=== PATIENT | female | born 1955 | race Caucasian/White ===

== ENCOUNTER 2020-10-23 01:55 | Emergency (ER) | payer MEDICARE, MEDICAID, SELFPAY ==
[2020-10-23 02:10] VITALS: BP 107/72; PULSE 93; RESP 15; TEMP 37.2; O2SAT 95; BMI 24.2
--- NOTE | 2020-10-23 02:35 | ECG_ITS ---
Test Reason : AMS Blood Pressure : / mmHG Vent. Rate : 090 BPM Atrial Rate : 250 BPM P-R Int : 000 ms QRS Dur : 072 ms QT Int : 390 ms P-R-T Axes : 000 038 058 degrees QTc Int : 477 ms Poor data quality Normal sinus rhythm ST & T wave abnormality, consider lateral ischemia Abnormal ECG When compared with ECG of 29-APR-2020 01:10, T wave inversion now evident in Lateral leads Referred By: Janis Salinas Electronically Signed By:COLIN BOLDEN MD
--- NOTE | 2020-10-23 02:35 | XR_ITS ---
EXAMINATION: CHEST 1 VIEW CLINICAL INFORMATION: Cough. COMPARISON: 04/29/2020. TECHNIQUE: An AP view of the chest is provided. FINDINGS: The cardiac silhouette is not enlarged. The mediastinal and hilar contours are unremarkable. There are neither pleural effusions nor pneumothoraces. There are no consolidations. The osseous structures are stable. XR/XR chest 1V IMPRESSION: No evidence for acute disease.
--- NOTE | 2020-10-23 02:37 | ED.AMS ---
HPI - Altered Mental Status General Chief Complaint: General Medical Stated Complaint: ams Time Seen by Provider: 10/23/20 02:34 Source: patient and other (Facility) Mode of arrival: ambulatory History of Present Illness HPI narrative: This is a 65-year-old female with baseline dementia, however on questioning patient denies any current pain anywhere in her body. Patient was brought in by EMS after they were called from the facility for complaints of 2-3 days of changes in behavior firm baseline dementia and as per the facility the patient had been complaining of burning upon urination. Related Data Home Medications Medication Instructions Recorded Confirmed albuterol sulfate [Ventolin HFA] 2 puff INHALATION NEEDED 10/23/20 10/23/20 benztropine 1 tab PO BID 10/23/20 10/23/20 calcium carbonate-vitamin D3 1 tab PO DAILY 10/23/20 10/23/20 divalproex 500 mg PO DAILY 10/23/20 10/23/20 docusate sodium [Stool Softener] 1 cap PO BID 10/23/20 10/23/20 haloperidol 1 tab PO BEDTIME 10/23/20 10/23/20 haloperidol 1 tab PO BID 10/23/20 10/23/20 melatonin 1 tab PO BEDTIME 10/23/20 10/23/20 multivitamin [One Daily 1 tab PO DAILY 10/23/20 10/23/20 Multivitamin] oxybutynin chloride 1 tab PO DAILY 10/23/20 10/23/20 pantoprazole 1 tab PO DAILY 10/23/20 10/23/20 venlafaxine 1 cap PO DAILY 10/23/20 10/23/20 Previous Rx's Medication Instructions Recorded cephalexin 500 mg PO Q12H 7 Days #14 cap 10/23/20 Allergies Allergy/AdvReac Type Severity Reaction Status Date / Time egg [EGG] Allergy Intermediate DIARRHEA Verified 10/23/20 02:21 lactose [LACTOSE] Allergy Intermediate DIARRHEA Verified 10/23/20 02:21 alendronate sodium Allergy Mild UPSET Verified 10/23/20 02:21 [From FOSAMAX] STOMACH bone medications AdvReac Mild STOMACH Uncoded 10/23/20 02:21 UPSET Review of Systems Review of Systems: Dementia Yes Unobtainable due to mental condition PMFSH Past Medical History Source: nursing notes reviewed Medical History Asthma GERD (gastroesophageal reflux disease) Hypertension Schizoaffective disorder Social History Social History Smoking Status: Never smoker Use of substances other than those prescribed or required for medical reasons: No Advance Directives: No Advance Directives Information Provided: No Physical Exam Vital Signs: Vital Signs: Last Vital Signs Temp 98.9 F 10/23/20 02:10 Pulse 99 10/23/20 04:00 Resp 16 10/23/20 04:00 BP 127/72 10/23/20 04:00 Pulse Ox 96 10/23/20 04:00 Body Mass Index 24.2 VITAL SIGNS: Reviewed. GENERAL: Well developed, well nourished, in no acute distress. HEAD: Normocephalic/atraumatic, EYES: PERRLA, EOMI intact without pain OROPHARYNX: no oral lesions noted, posterior pharynx clear, mucosa dry NECK: Supple, no adenopathy LUNGS: Normal breath sounds. No adventitious sounds or accessory muscle use. SpO2<95> CARDIOVASCULAR: Regular rate and rhythm without noted murmurs, no JVD or lower extremity edema. ABDOMEN: Soft, non-tender, non-distended with bowel sounds. No rigidity. No guarding. No palpable masses or hernias noted MUSCULOSKELETAL: No tenderness, deformities, or effusions noted on gross inspection. EXTREMITIES: No cyanosis, clubbing or edema. SKIN: Inspection of the skin reveals no rashes, ulcerations, jaundice, pallor, or petechiae. NEUROLOGIC: Alert and oriented x 2. Strength and sensation to light touch were grossly intact x 4, no pronator drift, no facial asymmetry. Course Course Course Narrative: This is a 65-year-old female with history and clinical presentation consistent with likely underlying infection but no evidence to suggest neurological deficits. On review of all investigations patient is noted to have a mild leukocytosis with positive urinalysis and otherwise no acute changes in lab work to suggest alternative etiologies. Patient was noted to be able to ambulate without difficulty. Patient was given initial antibiotics here in the emergency department and will be discharged back to the facility with a prescription for remaining treatment. Chest x-ray was without acute findings. MDM - Altered Mental Status Lab Data Result diagrams: 10/23/20 02:54 10/23/20 02:54 Labs: Lab Results 10/23/20 10/23/20 10/23/20 Range/Units 02:54 02:54 02:54 WBC 12.1 H (4.8-10.8) X10*3/uL RBC 3.72 L (4.20-5.50) X10*6/uL Hgb 12.0 (12.0-16.0) g/dl Hct 36.1 L (37-47) % MCV 97.0 (80-98) fL MCH 32.3 (27.0-33.0) pg MCHC 33.2 (31.0-35.0) g/dl RDW 13.2 (11.0-16.0) % Plt Count 139 L (160-400) X10*3/uL MPV 11.0 (9.4-12.3) fL Immature Gran % (Auto) 0.6 H (0.0-0.4) % Neut % (Auto) 73.9 H (45-73) % Lymph % (Auto) 10.6 L (20-40) % [place] % (Auto) 13.8 H (2-11) % Eos % (Auto) 0.9 (0-4) % Baso % (Auto) 0.2 (0-2) % Lymph # (Auto) 1.3 (1.2-4.9) X10*3/uL [place] # (Auto) 1.7 H (0.1-1.2) X10*3/uL Eos # (Auto) 0.1 (0.0-0.4) X10*3/uL Baso # (Auto) 0.0 (0.0-0.2) X10*3/uL Abs Immat Gran (auto) 0.07 H (0.00-0.03) X10*3/uL Absolute Neuts (auto) 8.9 H (2.0-8.3) X10*3/uL Absolute Nucleated RBC 0.000 (0.0-0.012) X10*3/uL Nucleated RBC % (auto) 0.0 (0.0-0.2) /100WBC Smear Tech's Comments VERIFIED PT 13.2 H (10.8-13.0) SEC INR 1.1 (0.9-1.1) Sodium 137 (135-145) mmol/L Potassium 3.9 (3.3-5.1) mmol/l Chloride 103 (96-108) mmol/L Carbon Dioxide 26 (22-29) mmol/L Anion Gap 12 (12-20) BUN 13 (9-16) mg/dL Creatinine 0.71 (0.5-1.4) mg/dL Estim Creat Clear Calc 63.8 Estimated GFR > 60 Random Glucose 110 (60-115) mg/dL Calcium 8.5 (8.4-10.2) mg/dL Magnesium (1.6-2.6) mg/dL Total Bilirubin 0.4 (0.0-1.0) mg/dL AST 12 (5-31) U/L ALT 7 (0-31) U/L Alkaline Phosphatase 63 (39-117) U/L Total Protein 5.9 L (6.5-8.0) g/dL Albumin 3.5 (3.5-5.0) g/dL Lipase 8 (8-78) U/L Urine Color Urine Appearance Urine pH (5.0-8.0) Ur Specific [place] (1.005-1.025) Urine Protein (NEG-TRACE) MG/DL Urine Glucose (UA) (NEG) MG/DL Urine Ketones (NEG) MG/DL Urine Blood (NEG) Urine Nitrite (NEG) Ur Leukocyte Esterase (NEG) Urine RBC (0) /HPF Urine WBC (0-4) /HPF Ur Squamous Epith Cells /LPF Urine Bacteria /LPF Urine Mucus /LPF 10/23/20 10/23/20 Range/Units 02:54 03:45 WBC (4.8-10.8) X10*3/uL RBC (4.20-5.50) X10*6/uL Hgb (12.0-16.0) g/dl Hct (37-47) % MCV (80-98) fL MCH (27.0-33.0) pg MCHC (31.0-35.0) g/dl RDW (11.0-16.0) % Plt Count (160-400) X10*3/uL MPV (9.4-12.3) fL Immature Gran % (Auto) (0.0-0.4) % Neut % (Auto) (45-73) % Lymph % (Auto) (20-40) % [place] % (Auto) (2-11) % Eos % (Auto) (0-4) % Baso % (Auto) (0-2) % Lymph # (Auto) (1.2-4.9) X10*3/uL [place] # (Auto) (0.1-1.2) X10*3/uL Eos # (Auto) (0.0-0.4) X10*3/uL Baso # (Auto) (0.0-0.2) X10*3/uL Abs Immat Gran (auto) (0.00-0.03) X10*3/uL Absolute Neuts (auto) (2.0-8.3) X10*3/uL Absolute Nucleated RBC (0.0-0.012) X10*3/uL Nucleated RBC % (auto) (0.0-0.2) /100WBC Smear Tech's Comments PT (10.8-13.0) SEC INR (0.9-1.1) Sodium (135-145) mmol/L Potassium (3.3-5.1) mmol/l Chloride (96-108) mmol/L Carbon Dioxide (22-29) mmol/L Anion Gap (12-20) BUN (9-16) mg/dL Creatinine (0.5-1.4) mg/dL Estim Creat Clear Calc Estimated GFR Random Glucose (60-115) mg/dL Calcium (8.4-10.2) mg/dL Magnesium 1.8 (1.6-2.6) mg/dL Total Bilirubin (0.0-1.0) mg/dL AST (5-31) U/L ALT (0-31) U/L Alkaline Phosphatase (39-117) U/L Total Protein (6.5-8.0) g/dL Albumin (3.5-5.0) g/dL Lipase (8-78) U/L Urine Color YELLOW Urine Appearance CLEAR Urine pH 6.0 (5.0-8.0) Ur Specific [place] 1.025 (1.005-1.025) Urine Protein NEG (NEG-TRACE) MG/DL Urine Glucose (UA) NEG (NEG) MG/DL Urine Ketones 15 (NEG) MG/DL Urine Blood NEG (NEG) Urine Nitrite NEG (NEG) Ur Leukocyte Esterase 1+ H (NEG) Urine RBC 1-4 (0) /HPF Urine WBC 10-14 H (0-4) /HPF Ur Squamous Epith Cells 1+ /LPF Urine Bacteria 1+ /LPF Urine Mucus 1+ /LPF Discharge Plan Discharge Clinical Impression: Acute UTI Patient Disposition: er [facility] Instructions: Urinary Tract Infection in Older Adults (ED) Additional Instructions: Please resume all home medications as prescribed. Increase fluid hydration especially with water. Prescriptions: New cephalexin 500 mg capsule 500 mg PO Q12H 7 Days Qty: 14 RF: 0 No Action multivitamin [One Daily Multivitamin] Tablet 1 tab PO DAILY RF: 0 venlafaxine 75 mg capsule,extended release 24hr 1 cap PO DAILY RF: 0 benztropine 0.5 mg tablet 1 tab PO BID RF: 0 haloperidol 5 mg tablet 1 tab PO BEDTIME RF: 0 oxybutynin chloride 10 mg tablet extended release 24hr 1 tab PO DAILY RF: 0 melatonin 3 mg tablet 1 tab PO BEDTIME RF: 0 pantoprazole 40 mg tablet,delayed release (DR/EC) 1 tab PO DAILY RF: 0 docusate sodium [Stool Softener] 100 mg capsule 1 cap PO BID RF: 0 albuterol sulfate [Ventolin HFA] 90 mcg/actuation HFA aerosol inhaler 2 puff inhalation NEEDED RF: 0 haloperidol 2 mg tablet 1 tab PO BID RF: 0 divalproex 125 mg capsule, delayed rel sprinkle 500 mg PO DAILY RF: 0 calcium carbonate-vitamin D3 600 mg(1,500mg) -400 unit tablet 1 tab PO DAILY RF: 0
[2020-10-23] MEDS: 0.9 % Sodium Chloride 1,000 ML 999 ML IV (02:56)
[2020-10-23 03:01] LABS: Basophils Percent Auto 0.2 % (0-2); MANUAL DIFF FLAG SCAN; PLT CLUMP 1; SCAN SMEAR FLAG 1
[2020-10-23 03:02] LABS: Eosinophils Absolute Auto 0.1 X10*3/uL (0.0-0.4); Eosinophils Percent Auto 0.9 % (0-4); Hematocrit 36.1 % (37-47); Imm Gran Abs Auto 0.07 X10*3/uL (0.00-0.03); Imm Gran Pct Auto 0.6 % (0.0-0.4); Lymphocytes Absolute Auto 1.3 X10*3/uL (1.2-4.9); Lymphocytes Percent Auto 10.6 % (20-40); Mean Corpuscular HGB Conc 33.2 g/dl (31.0-35.0); Mean Corpuscular Hemoglobin 32.3 pg (27.0-33.0); Monocytes Absolute Auto 1.7 X10*3/uL (0.1-1.2); Monocytes Percent Auto 13.8 % (2-11); Neutrophils Absolute Auto 8.9 X10*3/uL (2.0-8.3); Neutrophils Percent Auto 73.9 % (45-73); Platelet Count 139 X10*3/uL (160-400); Red Blood Count 3.72 X10*6/uL (4.20-5.50); Red Cell Distribution Width 13.2 % (11.0-16.0); White Blood Count 12.1 X10*3/uL (4.8-10.8)
[2020-10-23 03:07] LABS: INTERNATIONAL NORM RATIO 1.1 (0.9-1.1); Prothrombin Time 13.2 SEC (10.8-13.0)
[2020-10-23 03:25] LABS: Alanine Aminotransferase 7 U/L (0-31); Albumin Level 3.5 g/dL (3.5-5.0); Alkaline Phosphatase 63 U/L (39-117); Anion Gap 12 (12-20); Aspartate Amino Transferase 12 U/L (5-31); Bilirubin Total 0.4 mg/dL (0.0-1.0); Blood Urea Nitrogen 13 mg/dL (9-16); Calcium 8.5 mg/dL (8.4-10.2); Carbon Dioxide 26 mmol/L (22-29); Chloride 103 mmol/L (96-108); Creatinine Clr Calc Pharmacy 63.8; Estimated Glomerular Filt Rate > 60; Glucose Random 110 mg/dL (60-115); Lipase 8 U/L (8-78); Magnesium 1.8 mg/dL (1.6-2.6); Potassium 3.9 mmol/l (3.3-5.1); Sodium 137 mmol/L (135-145); Total Protein 5.9 g/dL (6.5-8.0)
[2020-10-23 03:26] LABS: SLIDE REVIEW VERIFIED
[2020-10-23 04:00] VITALS: BP 127/72; PULSE 99; RESP 16; O2SAT 96
[2020-10-23 04:00] LABS: Appearance Urine CLEAR; Color Urine YELLOW; Glucose Urine UA NEG (NEG); Leukocyte Esterase Urine 1+ (NEG); Nitrite Urine NEG (NEG); Specific Gravity - Urine 1.025 (1.005-1.025); Urine Blood NEG (NEG); Urine Ketones 15 MG/DL (NEG); Urine Protein NEG (NEG-TRACE)
[2020-10-23 04:05] LABS: Bacteria Urine 1+ /LPF; Mucus Urine 1+ /LPF; Squamous Epithelial Cell Urine 1+ /LPF
[2020-10-23] MEDS: cefTRIAXone sodium 1 GM in 0.9 % Sodium Chloride 50 ML IV (04:44)
--- NOTE | 2020-10-23 06:07 | PC.NURSE ---
REPORT GIVEN TO [facility] AT [facility].
== END 2020-10-23 06:50 | disposition skilled nursing facility (03) ==
PROVIDERS: Emergency Provider Student in an Organized Health Care Education/Training Program
DX: N39.0 Urinary tract infection, site not specified (principal); R41.82 Altered mental status, unspecified; R05 Cough; R94.31 Abnormal electrocardiogram [ECG] [EKG]; I10 Essential (primary) hypertension; R30.0 Dysuria; Z79.899 Other long term (current) drug therapy
CPT/HCPCS: 36415; 71045; 80053; 81001; 83690; 83735; 85025; 85610; 87086; 93005; 96361; 96365; 99284; J0696

== ENCOUNTER 2020-12-02 15:23 | Emergency (ER) | payer MEDICARE, MEDICAID, SELFPAY ==
[2020-12-02] VITALS (8 sets, daily range): BP systolic 87–132; BP diastolic 33–86; PULSE 78–117; RESP 15–17; TEMP 36.3–36.8; O2SAT 95–97; BMI 25.4
--- NOTE | ~2020-12-02 | CT_ITS ---
EXAMINATION: CT HEAD WITHOUT CONTRAST CT CERVICAL SPINE WITHOUT CONTRAST CLINICAL INFORMATION: Head injury. COMPARISON: CT head 04/29/2020 TECHNIQUE: Imaging was performed from the skull base to vertex without intravenous administration of contrast. In addition, helical noncontrast CT imaging was acquired through the cervical spine and source images were reviewed along with axial reconstructions and sagittal and coronal MPRs. [This CT examination was performed using dose optimization techniques as appropriate, variously including the following: *Automated exposure control *Adjustment of mA and/or kV according to patient size (this includes techniques or standardized protocols for targeted exams where dose is matched to indication/reason for exam; i.e. extremities or head) *Use of iterative reconstruction technique] DLP: 955 mGy-cm FINDINGS: HEAD: No intracranial mass, hemorrhage, or midline shift is visualized. There is atrophy with prominence of the ventricles and the sulci and hypodensity of the periventricular white matter due to chronic small vessel ischemic disease. There are vascular calcifications of the internal carotid arteries bilaterally. No extra-axial collections are identified. Small retention cyst inferior right maxillary sinus. Mastoid air cells and middle ear cavities are normally aerated. CERVICAL SPINE: There is no evidence of acute cervical spine fracture. Vertebral bodies remain normal in height. Cervical vertebrae have normal alignment. There is multilevel degenerative spondylosis of the cervical spine with disc height narrowing and endplate spurs and facet joint arthrosis No pre- or paravertebral soft tissue abnormality is identified. Limited assessment of the lung apices is unremarkable. CT/CT cervical spine wo con IMPRESSION: 1. No acute intracranial pathology. 2. No CT evidence of acute cervical spine fracture or traumatic subluxation
--- NOTE | ~2020-12-02 | XR_ITS ---
EXAMINATION: XR CHEST CLINICAL INFORMATION: Shortness of breath COMPARISON: X-ray the chest 10/23/2020 TECHNIQUE: Frontal view of the chest was obtained. FINDINGS: Subtle opacity overlying the medial aspect of the left first rib unchanged Lungs otherwise clear. No effusions. Old posterior right seventh rib fracture Cardiac silhouette and pulmonary vascularity normal. XR/XR chest 1V IMPRESSION: Subtle small in the left upper lung overlying the first rib unchanged compared to prior but not seen on earlier examinations including April 2020. Consider PA and lateral views of the chest to reevaluate for nodule or consolidation. Alternatively CT could be performed.
--- NOTE | 2020-12-02 15:39 | ECG_ITS ---
Test Reason : DIZZINESS Blood Pressure : / mmHG Vent. Rate : 088 BPM Atrial Rate : 088 BPM P-R Int : 150 ms QRS Dur : 074 ms QT Int : 372 ms P-R-T Axes : 083 070 079 degrees QTc Int : 450 ms Normal sinus rhythm Nonspecific T wave abnormality Abnormal ECG When compared with ECG of 23-OCT-2020 03:12, T wave inversion no longer evident in Lateral leads Referred By: Rosie Perkins Electronically Signed By:KELLI XIONG
--- NOTE | 2020-12-02 15:58 | ED_ITS ---
HPI - Fall General Chief Complaint: Fall Stated Complaint: mechanical fall, head swelling Time Seen by Provider: 12/02/20 15:39 History of Present Illness HPI Narrative: Patient is a 65-year-old female presents today after falling. Patient felt dizzy and then fell. May have hit the back of her head. Patient denies loss of consciousness. No focal weakness. Positive generalized malaise. No bloody stool. No coughing or congestion or upper respiratory symptoms. No new medication. No pain on urination. No chest pain. Related Data Home Medications Medication Instructions Recorded Confirmed albuterol sulfate [Ventolin HFA] 2 puff INHALATION NEEDED 10/23/20 10/23/20 benztropine 1 tab PO BID 10/23/20 10/23/20 calcium carbonate-vitamin D3 1 tab PO DAILY 10/23/20 10/23/20 divalproex 500 mg PO DAILY 10/23/20 10/23/20 docusate sodium [Stool Softener] 1 cap PO BID 10/23/20 10/23/20 haloperidol 1 tab PO BEDTIME 10/23/20 10/23/20 haloperidol 1 tab PO BID 10/23/20 10/23/20 melatonin 1 tab PO BEDTIME 10/23/20 10/23/20 multivitamin [One Daily 1 tab PO DAILY 10/23/20 10/23/20 Multivitamin] oxybutynin chloride 1 tab PO DAILY 10/23/20 10/23/20 pantoprazole 1 tab PO DAILY 10/23/20 10/23/20 venlafaxine 1 cap PO DAILY 10/23/20 10/23/20 Previous Rx's Medication Instructions Recorded cephalexin 500 mg PO Q12H 7 Days #14 cap 10/23/20 Allergies Allergy/AdvReac Type Severity Reaction Status Date / Time egg [EGG] Allergy Intermediate DIARRHEA Verified 10/23/20 02:21 lactose [LACTOSE] Allergy Intermediate DIARRHEA Verified 10/23/20 02:21 alendronate sodium Allergy Mild UPSET Verified 10/23/20 02:21 [From FOSAMAX] STOMACH bone medications AdvReac Mild STOMACH Uncoded 10/23/20 02:21 UPSET Review of Systems Review of Systems: Constitutional: No Weight loss, No Fever, No Chills, No Night Sweats, No Fatigue, No Malaise ENT/Mouth: No Hearing loss, No Ear Pain, No Nasal Congestion, No Sinus Pain, No Hoarseness, No sore throat, No Rhinorrhea, No Swallowing Difficulty Eyes: No Eye Pain, No Swelling, No Redness, No Foreign Body, No Discharge, No Vision Changes Cardiovascular: No Chest Pain, No SOB, No Dyspnea on Exertion, No Orthopnea, No Edema, No Palpitations Respiratory: No Cough, No Sputum, No Wheezing, No Smoke Exposure, No Dyspnea Gastrointestinal: No Nausea, No Vomiting, No Diarrhea, No Constipation, No abdominal Pain, No Hematochezia, No Melena Genitourinary: no irregular bleeding, No Dysuria, No Urinary Frequency, No Hematuria, No Urinary Incontinence, No Urgency, No Flank Pain, No Urinary Flow Changes, No Hesitancy Musculoskeletal: No joint pain, No Myalgias, No Joint Swelling Skin: No Skin Lesions, No rash Neuro: + Weakness, No Numbness, No Paresthesias, No Loss of Consciousness,+ Dizziness, No Headache Psych: No Anxiety/Panic, No Depression, No SI/HI/AH/VH, No Social Issues, Heme/Lymph: No Bruising, No Bleeding,No Lymphadenopathy Endocrine: No Polyuria, No Polydipsia, No Temperature Intolerance Yes all other systems are reviewed and are negative [facility] Past Medical History Attestation statement: The following information was validated with the patient. Medical History Asthma GERD (gastroesophageal reflux disease) Hypertension Schizoaffective disorder Social History Social History Smoking Status: Never smoker Advance Directives: No Advance Directives Information Provided: Yes Physical Exam Vital Signs: Vital Signs: Last Vital Signs Temp 98.2 F 12/02/20 15:31 Pulse 113 H 12/02/20 16:47 Resp 15 12/02/20 15:31 BP 87/33 L 12/02/20 16:47 Pulse Ox 95 12/02/20 15:31 Body Mass Index 25.4 Appearance: Alert. Oriented X3. No acute distress. Eyes: Pupils equal, round and reactive to light. ENT: Pharynx normal. Neck: Normal inspection. Neck supple. No lymph nodes noted. No crepitus CVS: Normal heart rate and rhythm. Pulses normal. Normal S1 and S2 Respiratory: No respiratory distress. Breath sounds normal. No Wheezing. No rales Abdomen: Soft and nontender. No rigidity. No distention. good BS x4 Skin: Skin warm and dry. Normal skin color. Normal skin turgor. Extremities: No lower extremity edema. Neurovascular intact to all extremities. No Lacerations. No Rash Neuro: Oriented X 3. No motor deficit. No sensory deficit. Moving all extermities. No slurred speech MDM - Fall MDM Narrative Medical decision making narrative: Well-appearing not acute distress. Has a generalized malaise. Patient's EKG showed a sinus pattern headers 90 RI QRS QT within normal limits is no acute ST segment elevation. Labs and CT are pending. CT scan of the head was grossly negative. Patient's hemoglobin is baseline. Well-appearing no acute distress. Patient's orthostatics showed patient's blood pressure dropped by 20 points on sitting up. Likely dehydration causing PEEP patient's fall. Patient's hemoccult stool was negative. Otherwise well- appearing. Will discharge patient home after IV hydration and if patients is no longer orthostatic. Lab Data Result diagrams: 12/02/20 16:01 12/02/20 16:01 Labs: Lab Results 12/02/20 12/02/20 12/02/20 Range/Units 15:55 15:56 16:01 WBC 6.5 (4.8-10.8) X10*3/uL RBC 3.91 L (4.20-5.50) X10*6/uL Hgb 12.5 (12.0-16.0) g/dl Hct 37.8 (37-47) % MCV 96.7 (80-98) fL MCH 32.0 (27.0-33.0) pg MCHC 33.1 (31.0-35.0) g/dl RDW 13.4 (11.0-16.0) % Plt Count 170 (160-400) X10*3/uL MPV 10.7 (9.4-12.3) fL Immature Gran % (Auto) 0.6 H (0.0-0.4) % Neut % (Auto) 55.9 (45-73) % Lymph % (Auto) 28.1 (20-40) % [place] % (Auto) 10.8 (2-11) % Eos % (Auto) 4.3 H (0-4) % Baso % (Auto) 0.3 (0-2) % Lymph # (Auto) 1.8 (1.2-4.9) X10*3/uL [place] # (Auto) 0.7 (0.1-1.2) X10*3/uL Eos # (Auto) 0.3 (0.0-0.4) X10*3/uL Baso # (Auto) 0.0 (0.0-0.2) X10*3/uL Abs Immat Gran (auto) 0.04 H (0.00-0.03) X10*3/uL Absolute Neuts (auto) 3.6 (2.0-8.3) X10*3/uL Absolute Nucleated RBC 0.000 (0.0-0.012) X10*3/uL Nucleated RBC % (auto) 0.0 (0.0-0.2) /100WBC PT (10.8-13.0) SEC INR (0.9-1.1) Sodium (135-145) mmol/L Potassium (3.3-5.1) mmol/L Chloride (96-108) mmol/L Carbon Dioxide (22-29) mmol/L Anion Gap (12-20) BUN (9-16) mg/dL Creatinine (0.5-1.4) mg/dL Estim Creat Clear Calc Estimated GFR Random Glucose (60-115) mg/dL Calcium (8.4-10.2) mg/dL Total Bilirubin (0.0-1.0) mg/dL Direct Bilirubin (0.0-0.5) mg/dL AST (5-31) U/L ALT (0-31) U/L Alkaline Phosphatase (39-117) U/L Troponin I High Sens (<3.5-17.0) ng/L Total Protein (6.5-8.0) g/dL Albumin (3.5-5.0) g/dL Urine Color YELLOW Urine Appearance CLEAR Urine pH 7.0 (5.0-8.0) Ur Specific [place] 1.020 (1.005-1.025) Urine Protein NEG (NEG-TRACE) MG/DL Urine Glucose (UA) NEG (NEG) MG/DL Urine Ketones NEG (NEG) MG/DL Urine Blood NEG (NEG) Urine Nitrite NEG (NEG) Ur Leukocyte Esterase NEG (NEG) Stool Occult Blood NEG (NEG) COVID-19 (ADE) (Negative) COVID-19 Clin Com 12/02/20 12/02/20 12/02/20 Range/Units 16:01 16:01 16:01 WBC (4.8-10.8) X10*3/uL RBC (4.20-5.50) X10*6/uL Hgb (12.0-16.0) g/dl Hct (37-47) % MCV (80-98) fL MCH (27.0-33.0) pg MCHC (31.0-35.0) g/dl RDW (11.0-16.0) % Plt Count (160-400) X10*3/uL MPV (9.4-12.3) fL Immature Gran % (Auto) (0.0-0.4) % Neut % (Auto) (45-73) % Lymph % (Auto) (20-40) % [place] % (Auto) (2-11) % Eos % (Auto) (0-4) % Baso % (Auto) (0-2) % Lymph # (Auto) (1.2-4.9) X10*3/uL [place] # (Auto) (0.1-1.2) X10*3/uL Eos # (Auto) (0.0-0.4) X10*3/uL Baso # (Auto) (0.0-0.2) X10*3/uL Abs Immat Gran (auto) (0.00-0.03) X10*3/uL Absolute Neuts (auto) (2.0-8.3) X10*3/uL Absolute Nucleated RBC (0.0-0.012) X10*3/uL Nucleated RBC % (auto) (0.0-0.2) /100WBC PT 12.9 (10.8-13.0) SEC INR 1.1 (0.9-1.1) Sodium 141 (135-145) mmol/L Potassium 4.0 (3.3-5.1) mmol/L Chloride 105 (96-108) mmol/L Carbon Dioxide 27 (22-29) mmol/L Anion Gap 13 (12-20) BUN 13 (9-16) mg/dL Creatinine 0.68 (0.5-1.4) mg/dL Estim Creat Clear Calc 68.3 Estimated GFR > 60 Random Glucose 97 (60-115) mg/dL Calcium 8.8 (8.4-10.2) mg/dL Total Bilirubin 0.3 (0.0-1.0) mg/dL Direct Bilirubin < 0.2 (0.0-0.5) mg/dL AST 14 (5-31) U/L ALT 9 (0-31) U/L Alkaline Phosphatase 62 (39-117) U/L Troponin I High Sens < 3.5 (<3.5-17.0) ng/L Total Protein 5.9 L (6.5-8.0) g/dL Albumin 3.6 (3.5-5.0) g/dL Urine Color Urine Appearance Urine pH (5.0-8.0) Ur Specific [place] (1.005-1.025) Urine Protein (NEG-TRACE) MG/DL Urine Glucose (UA) (NEG) MG/DL Urine Ketones (NEG) MG/DL Urine Blood (NEG) Urine Nitrite (NEG) Ur Leukocyte Esterase (NEG) Stool Occult Blood (NEG) COVID-19 (ADE) (Negative) COVID-19 Clin Com 12/02/20 Range/Units 16:04 WBC (4.8-10.8) X10*3/uL RBC (4.20-5.50) X10*6/uL Hgb (12.0-16.0) g/dl Hct (37-47) % MCV (80-98) fL MCH (27.0-33.0) pg MCHC (31.0-35.0) g/dl RDW (11.0-16.0) % Plt Count (160-400) X10*3/uL MPV (9.4-12.3) fL Immature Gran % (Auto) (0.0-0.4) % Neut % (Auto) (45-73) % Lymph % (Auto) (20-40) % [place] % (Auto) (2-11) % Eos % (Auto) (0-4) % Baso % (Auto) (0-2) % Lymph # (Auto) (1.2-4.9) X10*3/uL [place] # (Auto) (0.1-1.2) X10*3/uL Eos # (Auto) (0.0-0.4) X10*3/uL Baso # (Auto) (0.0-0.2) X10*3/uL Abs Immat Gran (auto) (0.00-0.03) X10*3/uL Absolute Neuts (auto) (2.0-8.3) X10*3/uL Absolute Nucleated RBC (0.0-0.012) X10*3/uL Nucleated RBC % (auto) (0.0-0.2) /100WBC PT (10.8-13.0) SEC INR (0.9-1.1) Sodium (135-145) mmol/L Potassium (3.3-5.1) mmol/L Chloride (96-108) mmol/L Carbon Dioxide (22-29) mmol/L Anion Gap (12-20) BUN (9-16) mg/dL Creatinine (0.5-1.4) mg/dL Estim Creat Clear Calc Estimated GFR Random Glucose (60-115) mg/dL Calcium (8.4-10.2) mg/dL Total Bilirubin (0.0-1.0) mg/dL Direct Bilirubin (0.0-0.5) mg/dL AST (5-31) U/L ALT (0-31) U/L Alkaline Phosphatase (39-117) U/L Troponin I High Sens (<3.5-17.0) ng/L Total Protein (6.5-8.0) g/dL Albumin (3.5-5.0) g/dL Urine Color Urine Appearance Urine pH (5.0-8.0) Ur Specific [place] (1.005-1.025) Urine Protein (NEG-TRACE) MG/DL Urine Glucose (UA) (NEG) MG/DL Urine Ketones (NEG) MG/DL Urine Blood (NEG) Urine Nitrite (NEG) Ur Leukocyte Esterase (NEG) Stool Occult Blood (NEG) COVID-19 (ADE) Negative (Negative) COVID-19 Clin Com See Note Discharge Plan Discharge Clinical Impression: Head injury, Dehydration, Near syncope Patient Disposition: Home, Self-Care Instructions: Dehydration (ED), Head Injury (ED), Near Syncope (ED) Prescriptions: No Action multivitamin [One Daily Multivitamin] Tablet 1 tab PO DAILY RF: 0 venlafaxine 75 mg capsule,extended release 24hr 1 cap PO DAILY RF: 0 benztropine 0.5 mg tablet 1 tab PO BID RF: 0 haloperidol 5 mg tablet 1 tab PO BEDTIME RF: 0 oxybutynin chloride 10 mg tablet extended release 24hr 1 tab PO DAILY RF: 0 melatonin 3 mg tablet 1 tab PO BEDTIME RF: 0 pantoprazole 40 mg tablet,delayed release (DR/EC) 1 tab PO DAILY RF: 0 docusate sodium [Stool Softener] 100 mg capsule 1 cap PO BID RF: 0 albuterol sulfate [Ventolin HFA] 90 mcg/actuation HFA aerosol inhaler 2 puff inhalation NEEDED RF: 0 haloperidol 2 mg tablet 1 tab PO BID RF: 0 divalproex 125 mg capsule, delayed rel sprinkle 500 mg PO DAILY RF: 0 calcium carbonate-vitamin D3 600 mg(1,500mg) -400 unit tablet 1 tab PO DAILY RF: 0 cephalexin 500 mg capsule 500 mg PO Q12H 7 Days Qty: 14 RF: 0 Referrals: Kris Ontiveros MD [Primary Care Provider] - 2 days
[2020-12-02 16:11] LABS: MANUAL DIFF FLAG NO
[2020-12-02 16:13] LABS: Basophils Percent Auto 0.3 % (0-2); Eosinophils Absolute Auto 0.3 X10*3/uL (0.0-0.4); Eosinophils Percent Auto 4.3 % (0-4); Hematocrit 37.8 % (37-47); Hemoglobin 12.5 g/dl (12.0-16.0); Imm Gran Abs Auto 0.04 X10*3/uL (0.00-0.03); Imm Gran Pct Auto 0.6 % (0.0-0.4); Lymphocytes Absolute Auto 1.8 X10*3/uL (1.2-4.9); Lymphocytes Percent Auto 28.1 % (20-40); Mean Corpuscular HGB Conc 33.1 g/dl (31.0-35.0); Mean Corpuscular Volume 96.7 fL (80-98); Mean Platelet Volume 10.7 fL (9.4-12.3); Monocytes Absolute Auto 0.7 X10*3/uL (0.1-1.2); Monocytes Percent Auto 10.8 % (2-11); Neutrophils Absolute Auto 3.6 X10*3/uL (2.0-8.3); Neutrophils Percent Auto 55.9 % (45-73); Platelet Count 170 X10*3/uL (160-400); Red Blood Count 3.91 X10*6/uL (4.20-5.50); Red Cell Distribution Width 13.4 % (11.0-16.0); White Blood Count 6.5 X10*3/uL (4.8-10.8)
[2020-12-02 16:14] LABS: Appearance Urine CLEAR; Color Urine YELLOW; Glucose Urine UA NEG (NEG); Leukocyte Esterase Urine NEG (NEG); Nitrite Urine NEG (NEG); Urine Blood NEG (NEG); Urine Ketones NEG (NEG); Urine Protein NEG (NEG-TRACE)
[2020-12-02 16:15] LABS: OBS Int Ctl Valid YES; OBS1 NEG (NEG)
[2020-12-02 16:19] LABS: INTERNATIONAL NORM RATIO 1.1 (0.9-1.1); Prothrombin Time 12.9 SEC (10.8-13.0)
[2020-12-02 16:30] LABS: IDNOW Serial# 9DD0AD1C
[2020-12-02 16:31] LABS: COVID-19 Test Negative (Negative)
[2020-12-02 16:42] LABS: Alanine Aminotransferase 9 U/L (0-31); Albumin Level 3.6 g/dL (3.5-5.0); Alkaline Phosphatase 62 U/L (39-117); Anion Gap 13 (12-20); Aspartate Amino Transferase 14 U/L (5-31); Bilirubin Direct < 0.2 mg/dL (0.0-0.5); Bilirubin Total 0.3 mg/dL (0.0-1.0); Blood Urea Nitrogen 13 mg/dL (9-16); Calcium 8.8 mg/dL (8.4-10.2); Carbon Dioxide 27 mmol/L (22-29); Chloride 105 mmol/L (96-108); Creatinine Clr Calc Pharmacy 68.3; Estimated Glomerular Filt Rate > 60; Glucose Random 97 mg/dL (60-115); Sodium 141 mmol/L (135-145); Total Protein 5.9 g/dL (6.5-8.0)
[2020-12-02 16:45] LABS: Troponin-I High Sensitivity < 3.5 ng/L (<3.5-17.0)
[2020-12-02] MEDS: 0.9 % Sodium Chloride 1,000 ML 999 ML IV (17:37)
--- NOTE | 2020-12-02 20:36 | PC.NURSE ---
CALLED FACILITY TO GIVE REPORT. NO ANSWER.
== END 2020-12-02 21:45 | disposition skilled nursing facility (03) ==
PROVIDERS: Emergency Provider Emergency Medicine Emergency Medical Services; PCP Internal Medicine
DX: S09.90XA Unspecified injury of head, initial encounter (principal); R53.81 Other malaise; M54.2 Cervicalgia; G44.309 Post-traumatic headache, unspecified, not intractable; E86.0 Dehydration; W01.0XXA Fall on same level from slipping, tripping and stumbling without subsequent striking against object, initial encounter; Y93.9 Activity, unspecified; Y92.9 Unspecified place or not applicable; Y99.9 Unspecified external cause status; Z79.899 Other long term (current) drug therapy; Z20.822 Contact with and (suspected) exposure to COVID-19
CPT/HCPCS: 36415; 70450; 71045; 72125; 80048; 80076; 81003; 82272; 84484; 85025; 85610; 87635; 93005; 96360; 99284

== ENCOUNTER 2021-01-06 18:35 | Emergency (ER) | payer MEDICARE, MEDICAID, SELFPAY ==
--- NOTE | ~2021-01-06 | XR_ITS ---
EXAMINATION: XR LUMBOSACRAL SPINE CLINICAL INFORMATION: Fall with back pain COMPARISON: Sacrum and coccyx 05/16/2014 TECHNIQUE: Three views of the lumbosacral spine. FINDINGS: There is mild lateral subluxation of L2 upon L3 to the right. Degenerative changes are present predominantly at L1-L2 and L2-L3. Some mild compression deformities may be present at L1 and L2, but because of the curvature, this is a bit difficult to assess. Unfortunately, at the time of the prior sacral and coccyx study, only the bottom of L3 was included. Surgical clips present in the right upper quadrant. No pelvic fracture is visualized in the visualized pelvis. XR/XR lumbar spine 2-3V IMPRESSION: Degenerative changes in the spine with some right lateral subluxation of L2 upon L3. A definite acute compression fracture is not seen. If pain persists, MRI may be of value to see if there is any edema.
[2021-01-06 18:44] VITALS: BP 91/40; PULSE 98; RESP 16; TEMP 36.9; O2SAT 96
[2021-01-06 18:53] VITALS: BP 91/40; BP 96/62; PULSE 103; PULSE 116; RESP 15; TEMP 36.8; O2SAT 98; BMI 23.6
--- NOTE | 2021-01-06 19:13 | ED.FALL ---
HPI - Fall General Chief Complaint: Fall Stated Complaint: fall, back pain Time Seen by Provider: 01/06/21 19:07 Source: patient and EMS Mode of arrival: EMS Limitations: no limitations History of Present Illness HPI Narrative: 65-year-old female came in from [facility] facility, patient was walking in the room trying to get something from the closet lost her balance and she fell backwards landed on her back, patient declined head injury or LOC, no neck pain, just complain of mid back pain, no other complaint at this point. Blood pressure noted to be on the low side reviewing old records patient was run lower side blood pressure, patient is asymptomatic from the low blood pressure. Related Data Home Medications Medication Instructions Recorded Confirmed albuterol sulfate [Ventolin HFA] 2 puff INHALATION NEEDED 10/23/20 10/23/20 benztropine 1 tab PO BID 10/23/20 10/23/20 calcium carbonate-vitamin D3 1 tab PO DAILY 10/23/20 10/23/20 divalproex 500 mg PO DAILY 10/23/20 10/23/20 docusate sodium [Stool Softener] 1 cap PO BID 10/23/20 10/23/20 haloperidol 1 tab PO BEDTIME 10/23/20 10/23/20 haloperidol 1 tab PO BID 10/23/20 10/23/20 melatonin 1 tab PO BEDTIME 10/23/20 10/23/20 multivitamin [One Daily 1 tab PO DAILY 10/23/20 10/23/20 Multivitamin] oxybutynin chloride 1 tab PO DAILY 10/23/20 10/23/20 pantoprazole 1 tab PO DAILY 10/23/20 10/23/20 venlafaxine 1 cap PO DAILY 10/23/20 10/23/20 Previous Rx's Medication Instructions Recorded cephalexin 500 mg PO Q12H 7 Days #14 cap 10/23/20 Allergies Allergy/AdvReac Type Severity Reaction Status Date / Time egg [EGG] Allergy Intermediate DIARRHEA Verified 10/23/20 02:21 lactose [LACTOSE] Allergy Intermediate DIARRHEA Verified 10/23/20 02:21 alendronate sodium Allergy Mild UPSET Verified 10/23/20 02:21 [From FOSAMAX] STOMACH bone medications AdvReac Mild STOMACH Uncoded 10/23/20 02:21 UPSET Review of Systems Review of Systems: All other systems are reviewed and are negative Constitutional: Reports as per HPI and Reports no additional constitutional complaints Eyes: Reports as per HPI and Reports no additional eye complaints Reports system reviewed and no additional complaints, except as documented Cardiovascular: Reports as per HPI and Reports no additional cardiovascular complaints Respiratory: Reports as per HPI and Reports no additional respiratory complaints Gastrointestinal: Reports as per HPI and Reports no additional gastrointestinal complaints Genitourinary: Reports no additional female genitourinary complaints Musculoskeletal: Reports no additional musculoskeletal complaints Skin/Breast: Reports system reviewed and no additional complaints, except as docu Psychiatric: Reports no additional psychiatric complaints Endocrine: Reports no additional endocrine complaints Hematologic/Lymphatic: Reports no additional hematologic/lymphatic complaints Allergic/Immunologic: Reports no additional allergic/immunologic complaints Reports system reviewed and no additional complaints, except as documented and Reports Abnormal speech present [facility]LY [facility] Past Medical History Medical History Asthma GERD (gastroesophageal reflux disease) Hypertension Schizoaffective disorder Social History Social History Alcohol intake: never Smoking Status: Never smoker Advance Directives: No Advance Directives Information Provided: Yes Physical Exam Vital Signs: Vital Signs: Last Vital Signs Temp 98.8 F 01/06/21 20:37 Pulse 88 01/06/21 20:37 Resp 20 01/06/21 20:37 BP 101/62 01/06/21 20:37 Pulse Ox 99 01/06/21 20:37 Body Mass Index 23.6 Vital signs have been reviewed as appeared to be correct. Blood pressure normal. Heart rate normal. Respiration rate normal. Temperature normal. Oxygen saturation normal. Appearance: Alert. Oriented X3. No acute distress. Head: Normal external exam. Normocephalic. Atraumatic. No Barger signs noted. No raccoon eyes noted Eyes: PERRLA. EOMI. Conjunctiva and sclera normal. Eyelids normal. ENT: TM's Normal. Pharynx normal. Uvula midline. Moist mucous membranes. No trismus noted. No drooling noted. No muffled voice noted. Neck: Normal inspection. Neck supple. FROM. No adenopathy. Thyroid Normal. No meningeal signs. No neck mass noted. CVS: Normal heart rate and rhythm. Heart sound normal. No murmurs noted. Pulses normal throughout. Respiratory: No respiratory distress. Painless inspiration. Breath sounds normal. No wheezes/rales/rhonchi noted. Chest nontender. No accessory muscle usage noted or decreased air movement noted. Abdomen: Soft and nontender. Bowel sounds normal in all 4 quadrants. No distention noted. No organomegaly noted. No visible injury noted. Back: No CVA tenderness. Full range of motion noted. Skin: Skin warm and dry. Normal skin color. Normal skin turgor. No rashes/lesions/lacerations noted. Extremities: No lower extremity edema. Extremities exhibit normal range of motion. Extremities nontender. Neuro: Oriented X 3. No motor deficit. No sensory deficit. Reflexes normal. Course Course Course Narrative: Assessment and plan. 65-year-old female came in for evaluation after mechanical fall complaining of mid back pain. Patient neurologically intact with unremarkable lumbar spine x-ray for acute fracture. Patient was given ibuprofen in the ED with a good pain control, patient is able to ambulate in the emergency department. Patient's blood pressure usually runs in the lower side today's blood pressure compared with previous 1 within patient normal values patient is asymptomatic. MDM - Fall Lab Data Attestation: I reviewed the patient's lab results. Result diagrams: 01/06/21 19:23 01/06/21 19:23 Labs: Lab Results 01/06/21 01/06/21 Range/Units 19:23 19:23 WBC 10.8 (4.8-10.8) X10*3/uL RBC 3.54 L (4.20-5.50) X10*6/uL Hgb 11.5 L (12.0-16.0) g/dl Hct 33.9 L (37-47) % MCV 95.8 (80-98) fL MCH 32.5 (27.0-33.0) pg MCHC 33.9 (31.0-35.0) g/dl RDW 13.5 (11.0-16.0) % Plt Count 154 L (160-400) X10*3/uL MPV 11.2 (9.4-12.3) fL Immature Gran % (Auto) 0.3 (0.0-0.4) % Neut % (Auto) 74.0 H (45-73) % Lymph % (Auto) 10.8 L (20-40) % [place] % (Auto) 13.4 H (2-11) % Eos % (Auto) 1.3 (0-4) % Baso % (Auto) 0.2 (0-2) % Lymph # (Auto) 1.2 (1.2-4.9) X10*3/uL [place] # (Auto) 1.4 H (0.1-1.2) X10*3/uL Eos # (Auto) 0.1 (0.0-0.4) X10*3/uL Baso # (Auto) 0.0 (0.0-0.2) X10*3/uL Abs Immat Gran (auto) 0.03 (0.00-0.03) X10*3/uL Absolute Neuts (auto) 8.0 (2.0-8.3) X10*3/uL Absolute Nucleated RBC 0.000 (0.0-0.012) X10*3/uL Nucleated RBC % (auto) 0.0 (0.0-0.2) /100WBC Sodium 139 (135-145) mmol/L Potassium 4.0 (3.3-5.1) mmol/L Chloride 108 (96-108) mmol/L Carbon Dioxide 25 (22-29) mmol/L Anion Gap 10 L (12-20) BUN 13 (9-16) mg/dL Creatinine 0.68 (0.5-1.4) mg/dL Estim Creat Clear Calc 61.4 Estimated GFR > 60 Random Glucose 97 (60-115) mg/dL Calcium 8.5 (8.4-10.2) mg/dL Lipase 14 (8-78) U/L Imaging Data Lumbar spine x-ray: Radiologist's impression: There is mild lateral subluxation of L2 upon L3 to the right. Degenerative changes are present predominantly at L1-L2 and L2-L3. Some mild compression deformities may be present at L1 and L2, but because of the curvature, this is a bit difficult to assess. Unfortunately, at the time of the prior sacral and coccyx study, only the bottom of L3 was included. Surgical clips present in the right upper quadrant. No pelvic fracture is visualized in the visualized pelvis. Discharge Plan Discharge Clinical Impression: Fall Qualifiers: Encounter type: initial encounter Qualified Code(s): W19.XXXA - Unspecified fall, initial encounter Back contusion Qualifiers: Encounter type: initial encounter Laterality: unspecified laterality Qualified Code(s): S20.229A - Contusion of unspecified back wall of thorax, initial encounter Patient Disposition: Home, Self-Care Instructions: Low Back Strain (ED) Prescriptions: No Action multivitamin [One Daily Multivitamin] Tablet 1 tab PO DAILY RF: 0 venlafaxine 75 mg capsule,extended release 24hr 1 cap PO DAILY RF: 0 benztropine 0.5 mg tablet 1 tab PO BID RF: 0 haloperidol 5 mg tablet 1 tab PO BEDTIME RF: 0 oxybutynin chloride 10 mg tablet extended release 24hr 1 tab PO DAILY RF: 0 melatonin 3 mg tablet 1 tab PO BEDTIME RF: 0 pantoprazole 40 mg tablet,delayed release (DR/EC) 1 tab PO DAILY RF: 0 docusate sodium [Stool Softener] 100 mg capsule 1 cap PO BID RF: 0 albuterol sulfate [Ventolin HFA] 90 mcg/actuation HFA aerosol inhaler 2 puff inhalation NEEDED RF: 0 haloperidol 2 mg tablet 1 tab PO BID RF: 0 divalproex 125 mg capsule, delayed rel sprinkle 500 mg PO DAILY RF: 0 calcium carbonate-vitamin D3 600 mg(1,500mg) -400 unit tablet 1 tab PO DAILY RF: 0 cephalexin 500 mg capsule 500 mg PO Q12H 7 Days Qty: 14 RF: 0 Referrals: Physician,Unknown [Primary Care Provider] - 2 days
[2021-01-06] MEDS: Ibuprofen 600 MG TABLET PO (19:22)
[2021-01-06 19:30] LABS: MANUAL DIFF FLAG NO
[2021-01-06 19:39] LABS: Basophils Percent Auto 0.2 % (0-2); Eosinophils Absolute Auto 0.1 X10*3/uL (0.0-0.4); Eosinophils Percent Auto 1.3 % (0-4); Hematocrit 33.9 % (37-47); Hemoglobin 11.5 g/dl (12.0-16.0); Imm Gran Abs Auto 0.03 X10*3/uL (0.00-0.03); Imm Gran Pct Auto 0.3 % (0.0-0.4); Lymphocytes Absolute Auto 1.2 X10*3/uL (1.2-4.9); Lymphocytes Percent Auto 10.8 % (20-40); Mean Corpuscular HGB Conc 33.9 g/dl (31.0-35.0); Mean Corpuscular Hemoglobin 32.5 pg (27.0-33.0); Mean Corpuscular Volume 95.8 fL (80-98); Mean Platelet Volume 11.2 fL (9.4-12.3); Monocytes Absolute Auto 1.4 X10*3/uL (0.1-1.2); Monocytes Percent Auto 13.4 % (2-11); Platelet Count 154 X10*3/uL (160-400); Red Blood Count 3.54 X10*6/uL (4.20-5.50); Red Cell Distribution Width 13.5 % (11.0-16.0); White Blood Count 10.8 X10*3/uL (4.8-10.8)
--- NOTE | 2021-01-06 19:57 | PC.NURSE ---
pt awake and alert, moving all extremities. pt has clear speech, equal bilateral smile and strong equal hand grasps/plantar flexion. pt able to drink water from cup with no trouble swallowing or coughing.
--- NOTE | 2021-01-06 20:04 | PC.NURSE ---
pt has 2 small abrasions on throcic and lumbar spine upon visual exam.
[2021-01-06 20:08] LABS: Anion Gap 10 (12-20); Carbon Dioxide 25 mmol/L (22-29); Chloride 108 mmol/L (96-108); Sodium 139 mmol/L (135-145)
[2021-01-06 20:09] LABS: Blood Urea Nitrogen 13 mg/dL (9-16); Calcium 8.5 mg/dL (8.4-10.2); Creatinine Clr Calc Pharmacy 61.4; Estimated Glomerular Filt Rate > 60; Glucose Random 97 mg/dL (60-115); Lipase 14 U/L (8-78)
[2021-01-06 20:37] VITALS: BP 101/62; PULSE 88; RESP 20; TEMP 37.1; O2SAT 99
[2021-01-06 20:54] VITALS: BP 104/63; PULSE 86; RESP 22; O2SAT 98
--- NOTE | 2021-01-06 20:56 | PC.NURSE ---
pt ambulatory from bed to bathroom, bed brought close to bathroom. ambulatory with steady gait. pt reports feeling better, still a little dizzy.
[2021-01-06 21:10] LABS: Glucose Urine UA NEG (NEG); Leukocyte Esterase Urine 2+ (NEG); Nitrite Urine NEG (NEG); UACC Culture Trigger YES; Urine Blood NEG (NEG); Urine Ketones NEG (NEG); Urine Protein NEG (NEG-TRACE)
[2021-01-06 21:12] LABS: Appearance Urine CLEAR; Color Urine YELLOW
[2021-01-06 21:28] LABS: Bacteria Urine 1+ /LPF; Mucus Urine 1+ /LPF; Squamous Epithelial Cell Urine TRACE /LPF; UACC CULT YES
--- NOTE | 2021-01-06 21:28 | PC.NURSE ---
[facility] [place] [facility].
--- NOTE | 2021-01-06 22:00 | PC.NURSE ---
report given to rn at [facility] by phone.
== END 2021-01-06 22:27 | disposition home or self-care (01) ==
PROVIDERS: Emergency Provider Emergency Medicine
DX: S20.229A Contusion of unspecified back wall of thorax, initial encounter (principal); S30.810A Abrasion of lower back and pelvis, initial encounter; S20.419A Abrasion of unspecified back wall of thorax, initial encounter; W18.30XA Fall on same level, unspecified, initial encounter; N30.00 Acute cystitis without hematuria; M54.5 Low back pain; I10 Essential (primary) hypertension; Y93.89 Activity, other specified; Y92.122 Bedroom in nursing home as the place of occurrence of the external cause; Y99.9 Unspecified external cause status
CPT/HCPCS: 36415; 72100; 80048; 81001; 83690; 85025; 87086; 99283; 99284

== ENCOUNTER 2024-09-26 21:25 | Inpatient (IN) | payer MEDICARE, MEDICAID, SELFPAY ==
[2024-09-26] VITALS (10 sets, daily range): BP systolic 107–139; BP diastolic 57–96; PULSE 104–133; RESP 19–28; TEMP 38.9–40.1; O2SAT 91–96; BMI 31.4
--- NOTE | ~2024-09-26 | XR_ITS ---
EXAMINATION: XR CHEST CLINICAL INFORMATION: Fever, cough, rule out pneumonia COMPARISON: December 02, 2020 TECHNIQUE: Frontal view of the chest was obtained. FINDINGS: The cardiomediastinal silhouette is stable. There is no focal lung consolidation or pleural effusions. There is no acute osseous abnormality. The soft tissues are unremarkable. XR/XR chest 1V IMPRESSION: No acute cardiopulmonary disease. Electronically signed by: Federico Berry MD 09/26/2024 11:08 PM [facility]
--- NOTE | 2024-09-26 21:39 | ECG_ITS ---
Test Reason : weakness Blood Pressure : / mmHG Vent. Rate : 114 BPM Atrial Rate : 114 BPM P-R Int : 148 ms QRS Dur : 076 ms QT Int : 356 ms P-R-T Axes : 059 029 -06 degrees QTc Int : [address] & T wave abnormality, consider inferolateral ischemia Premature ventricular complexes Abnormal ECG When compared with ECG of 02-DEC-2020 15:49, Non-specific change in ST segment in Inferior leads T wave inversion now evident in Lateral leads Referred By: Frederic Gil Electronically Signed By:KELLI XIONG
--- NOTE | 2024-09-26 21:40 | ED_ITS ---
HPI - Weakness General Chief complaint: Weakness Stated complaint: weakness, not feeling well Time Seen by Provider: 09/26/24 21:26 Source: patient Mode of arrival: EMS Limitations: no limitations History of Present Illness ED Provider: Dr. Frederic Gil HPI Narrative: 69-year-old female with a history of GERD, schizoaffective disorder, hypertension, asthma who presents emergency department for evaluation of weakness, shakiness, unable to walk, cough x2 days. Patient states that she has not felt well for 2 days. She states she has had shaking chills and a nonproductive cough. She states that she was had a decreased appetite but has been drinking water. Today, she was very weak and was unable to walk therefore an ambulance was called and she was brought to the emergency department for evaluation. She denied nausea or vomiting but states she has been having diarrhea. She complains of dysuria and frequency. She denied myalgias arthralgias. Related Data Home Medications ?Medication ?Instructions ?Recorded ?Confirmed albuterol sulfate 90 mcg/actuation 2 puff inhalation NEEDED 10/23/20 10/23/20 aerosol inhaler (Ventolin HFA) benztropine 0.5 mg tablet 1 tab PO BID 10/23/20 10/23/20 calcium 600 mg (as 1 tab PO DAILY 10/23/20 10/23/20 carbonate)-vitamin D3 10 mcg (400 unit) tablet divalproex 125 mg capsule,delayed 500 mg PO DAILY 10/23/20 10/23/20 release sprinkle docusate sodium 100 mg capsule 1 cap PO BID 10/23/20 10/23/20 (Stool Softener) haloperidol 2 mg tablet 1 tab PO BID 10/23/20 10/23/20 haloperidol 5 mg tablet 1 tab PO BEDTIME 10/23/20 10/23/20 melatonin 3 mg tablet 1 tab PO BEDTIME 10/23/20 10/23/20 multivitamin (One Daily 1 tab PO DAILY 10/23/20 10/23/20 Multivitamin tablet) oxybutynin chloride 10 mg 1 tab PO DAILY 10/23/20 10/23/20 tablet,extended release 24 hr pantoprazole 40 mg tablet,delayed 1 tab PO DAILY 10/23/20 10/23/20 release venlafaxine 75 mg capsule,extended 1 cap PO DAILY 10/23/20 10/23/20 release 24 hr Previous Rx's ?Medication ?Instructions ?Recorded cephalexin 500 mg capsule 500 mg PO Q12H 7 days #14 caps 10/23/20 cefuroxime axetil 500 mg tablet 500 mg PO BID 7 days #14 tabs 01/06/21 Allergies Allergy/AdvReac Type Severity Reaction Status Date / Time egg [EGG] Allergy Intermediate DIARRHEA Verified 09/26/24 21:44 lactose [LACTOSE] Allergy Intermediate DIARRHEA Verified 09/26/24 21:44 alendronate sodium Allergy Mild UPSET Verified 09/26/24 21:44 [From FOSAMAX] STOMACH bone medications AdvReac Mild STOMACH Uncoded 09/26/24 21:44 UPSET Review of Systems 2 Review of Systems: Yes all other systems are reviewed and are negative [facility]LY [facility], [facility] Past Medical History [facility], [facility] Narrative: Social history: Patient lives at [facility]. Patient denies tobacco use. She rarely drinks alcohol. She denies drug use. Medical History Asthma GERD (gastroesophageal reflux disease) Hypertension Schizoaffective disorder Social History Social History Alcohol intake: current Alcohol intake frequency: holidays/special occasions only Smoked in Last 30 Days: No Use of substances other than those prescribed or required for medical reasons: No Advance Directives: No Advance Directives Information Provided: No Physical Exam 2 Vital Signs: Vital Signs: Last Vital Signs Temp 102.7 F H 09/26/24 23:09 Pulse 106 H 09/26/24 23:09 Resp 19 09/26/24 23:09 BP 139/72 09/26/24 23:09 Pulse Ox 94 09/26/24 23:09 O2 Del Method Room Air 09/26/24 23:09 BMI result Body Mass Index 31.4 Exam: General: Awake, alert elderly woman, does not appear to be in distress Head: Normocephalic, atraumatic EENT: PERRL, Lids normal, sclera normal, conjunctiva normal, nose normal , ears normal, throat without erythema or exudates, very dry mucous membranes Neck: Supple, no adenopathy Lung: breath sounds symmetric, no wheezing, rales or rhonchi Chest: symmetric movement, nontender Heart: regular rate and rhythm, normal S1, S2 no murmurs or rubs Abdomen: soft, non-tender, nondistended, normal bowel sounds Back: no vertebral tenderness, no CVAT Extremities: no deformities, moves all extremities symmetrically Neuro: Awake, alert, oriented, normal speech, cranial nerves intact, moves all extremities symmetrically Psych: Pleasant, cooperative Medications Administered Discontinued Medications Generic Name Dose Route Start Last Admin Trade Name Winter PRN Reason Stop Dose Admin Acetaminophen 975 mg 09/26/24 21:39 09/26/24 22:09 Acetaminophen 325 Mg Tablet PO 09/26/24 21:40 975 mg ONCE STA Administration Ceftriaxone Sodium 1 gm 09/26/24 21:58 09/26/24 22:10 Ceftriaxone Sodium 1 Gm Vial IVPUSH 09/26/24 21:59 1 gm ONCE ONE Administration Sodium Chloride 1,434 mls @ 1,434 mls/hr 09/26/24 21:53 09/26/24 21:59 Ns IV 09/26/24 22:52 1,434 mls/hr .Q1H STA Administration Medical Decision Making Medical Decision Making [facility] Narrative: 69-year-old female with a history of GERD, schizoaffective disorder, hypertension, asthma who presents emergency department for evaluation of weakness, shakiness, unable to walk, cough x2 days with symptoms getting worse today to the point where she was not able to walk at her rest home. Patient's cough is nonproductive, she did complain of frequency and dysuria as well as diarrhea. Vital signs revealed an oral temperature of a 103.5 degrees F, respiratory rate was elevated 22, heart rate elevated 118. 21:48 Differential diagnosis: ?Includes but is not limited to pneumonia, UTI, viral syndrome, COVID-19, influenza, RSV, electrolyte abnormalities, anemia Following evaluation was ordered: CBC, CMP, PTT, lactic acid, lipase, magnesium, COVID-19, influenza, RSV, troponin, urinalysis, blood cultures x2 Patient was initially treated with the following: Normal saline bolus 30 cc/kilogram based on ideal body weight, acetaminophen 975 mg orally, ceftriaxone 1 g IV Course: 21:48 The patient meant SIRS criteria with an elevated temperature, heart rate and respiratory rate. Patient was made a code sepsis. The patient is obese with an elevated BMI 31.4 kg per m2 therefore she was given a 30 cc/kilogram normal saline bolus based on ideal body weight. At this time I suspect that she may have a urinary tract infection versus pneumonia and she was ordered to get ceftriaxone 1 g IV. 22:20 My interpretation patient's laboratory evaluation is as follows: Low platelet count a [id number], elevated glucose 119. Troponin was below detectable limits. COVID-19, RSV and COVID tests were negative. Lactic acid was normal at 1.4. One-view chest x-ray did not reveal any focal infiltrates/pneumonia. Twelve EKG revealed sinus tachycardia rate of 114 with occasional PVCs and ST segment depression V5 through V6 which was new compared to EKG dated 12/02/2020. 23:08 Patient's urinalysis was positive for protein, blood, leukocyte esterase. Microscopic revealed 3-5 RBCs, greater than 50 WBCs, 3+ bacteria. This is consistent with a urinary tract infection this most likely explains her symptoms. I did discuss the patient's presentation and evaluation over tiger text with the covering hospitalist, Dr. Hernandez and the patient will be admitted to the hospitalist service for further management. Admission/Observation Consideration of admission/observation: Escalation of care including admission/observation considered (Yes) Lab Data 09/26/24 21:47 09/26/24 21:47 Labs: Lab Results 09/26/24 09/26/24 09/26/24 Range/Units 21:47 21:48 22:29 WBC 6.7 (4.8-10.8) X10*3/uL RBC 3.99 L (4.20-5.50) X10*6/uL Hgb 12.3 (12.0-16.0) g/dl Hct 36.0 L (37.0-47.0) % MCV 90.2 (80.0-98.0) fL MCH 30.8 (27.0-33.0) pg MCHC 34.2 (31.0-35.0) g/dl RDW 14.2 (11.0-16.0) % Plt Count 156 L (160-400) X10*3/uL MPV 11.1 (9.4-12.3) fL Immature Gran % (Auto) 0.8 H (0.0-0.4) % Neut % (Auto) 71.5 (45-73) % Lymph % (Auto) 9.3 L (20-40) % [place] % (Auto) 16.4 H (2-11) % Eos % (Auto) 1.8 (0-4) % Baso % (Auto) 0.2 (0-2) % Lymph # (Auto) 0.6 L (1.2-4.9) X10*3/uL [place] # (Auto) 1.1 (0.1-1.2) X10*3/uL Eos # (Auto) 0.1 (0.0-0.4) X10*3/uL Baso # (Auto) 0.0 (0.0-0.2) X10*3/uL Abs Immat Gran (auto) 0.05 H (0.00-0.03) X10*3/uL Absolute Neuts (auto) 4.8 (2.0-8.3) x10*3/uL Absolute Nucleated RBC 0.000 (0.0-0.012) X10*3/uL Nucleated RBC % (auto) 0.0 (0.0-0.2) /100WBC APTT 30.4 (26.0-36.8) SEC Sodium 140 (135-145) mmol/L Potassium 3.5 (3.3-5.1) mmol/L Chloride 107 (96-108) mmol/L Carbon Dioxide 23 (22-29) mmol/L Anion Gap 14 (12-20) BUN 13 (9-16) mg/dL Creatinine 0.79 (0.5-1.4) mg/dL Estim Creat Clear Calc 61.5 Estimated GFR > 60 Random Glucose 119 H (60-115) mg/dL Lactic Acid 1.4 (0.5-2.0) mmol/L Calcium 8.8 (8.4-10.2) mg/dL Magnesium 1.6 (1.6-2.6) mg/dL Total Bilirubin 0.3 (0.0-1.0) mg/dL AST 26 (5-31) U/L ALT 12 (0-31) U/L Alkaline Phosphatase 75 (39-117) U/L Troponin I High Sens < 2.7 (<3.5-17.0) ng/L Total Protein 6.3 L (6.5-8.0) g/dL Albumin 3.4 L (3.5-5.0) g/dL Lipase 10 (8-78) U/L Urine Color Yellow Urine Appearance Turbid Urine pH 6.5 (5.0-9.0) Ur Specific [place] 1.015 (1.005-1.025) Urine Protein 30 (1+) H (Neg-Trace) mg/dL Urine Glucose (UA) Negative (Negative) mg/dL Urine Ketones Trace (Negative) mg/dL Urine Blood Small (1+) H (Negative) Urine Nitrite Positive H (Negative) Ur Leukocyte Esterase Large (3+) H (Negative) Urine RBC 3-5 H (0-2) /HPF Urine WBC >50 H (0-5) /HPF Ur Squamous Epith Cells 3-5 (0-2) /HPF Urine Bacteria 3+ (None Seen) Hyaline Casts 0-2 (0-2) /LPF Influenza Type A (PCR) NEGATIVE (Negative) Influenza Type B (PCR) NEGATIVE (Negative) RSV RNA Qual (PCR) NEGATIVE (Negative) SARS-CoV-2 RNA (RT-PCR) NEGATIVE (Negative) Independent Interpretation I performed an independent interpretation of an: EKG Interpretation: My independent interpretation patient's 12 EKG done at 10:13 hours is as follows: Sinus tachycardia with a rate of 114, normal [place] interval and QRS duration, prolonged QTC interval 490 milliseconds. Q-wave lead 3, no ST segment elevation, less than [address] segment depression V5 and V6, occasional PVC, no significant T-wave abnormalities Independent Historian Clinical information obtained from an independent historian. History obtained from or confirmed by: EMS Critical Care Time Critical Care Time Critical Care Time: Yes Total Critical Care Time: 35 Attestation: Critical Care: The patient was critically ill with a high probability of imminent or life threatening deterioration. I spent greater than 30 minutes of discontinuous time evaluating the patient,delivering critical care at the bedside, discussing and evaluating pertinent data with consultants. Critical care time does not include time spent performing separately billable procedures or teaching. Total time spent performing critical care was 25 minutes. Discharge Plan Discharge Clinical Impression: Weakness Urinary tract infection Qualifiers: Urinary tract infection type: site unspecified Hematuria presence: without hematuria Qualified Code(s): N39.0 - Urinary tract infection, site not specified Fever Qualifiers: Encounter type: initial encounter Patient Disposition: Admitted As Inpatient Print Language: Tristanian
[2024-09-26 21:56] LABS: MANUAL DIFF FLAG NO
[2024-09-26] MEDS: 0.9 % Sodium Chloride 1,434 ML 1434 ML IV (21:59)
[2024-09-26 22:00] LABS: Basophils Percent Auto 0.2 % (0-2); Eosinophils Absolute Auto 0.1 X10*3/uL (0.0-0.4); Eosinophils Percent Auto 1.8 % (0-4); Hemoglobin 12.3 g/dl (12.0-16.0); Imm Gran Abs Auto 0.05 X10*3/uL (0.00-0.03); Imm Gran Pct Auto 0.8 % (0.0-0.4); Lymphocytes Absolute Auto 0.6 X10*3/uL (1.2-4.9); Lymphocytes Percent Auto 9.3 % (20-40); Mean Corpuscular HGB Conc 34.2 g/dl (31.0-35.0); Mean Corpuscular Hemoglobin 30.8 pg (27.0-33.0); Mean Corpuscular Volume 90.2 fL (80.0-98.0); Mean Platelet Volume 11.1 fL (9.4-12.3); Monocytes Absolute Auto 1.1 X10*3/uL (0.1-1.2); Monocytes Percent Auto 16.4 % (2-11); Neutrophils Absolute Auto 4.8 x10*3/uL (2.0-8.3); Neutrophils Percent Auto 71.5 % (45-73); Platelet Count 156 X10*3/uL (160-400); Red Blood Count 3.99 X10*6/uL (4.20-5.50); Red Cell Distribution Width 14.2 % (11.0-16.0); White Blood Count 6.7 X10*3/uL (4.8-10.8)
[2024-09-26 22:08] LABS: Partial Thromboplastin Time 30.4 SEC (26.0-36.8)
[2024-09-26] MEDS: Acetaminophen 325 MG TABLET 975 MG PO (22:09)
[2024-09-26 22:10] LABS: Alanine Aminotransferase 12 U/L (0-31); Albumin Level 3.4 g/dL (3.5-5.0); Alkaline Phosphatase 75 U/L (39-117); Anion Gap 14 (12-20); Aspartate Amino Transferase 26 U/L (5-31); Bilirubin Total 0.3 mg/dL (0.0-1.0); Blood Urea Nitrogen 13 mg/dL (9-16); Calcium 8.8 mg/dL (8.4-10.2); Carbon Dioxide 23 mmol/L (22-29); Chloride 107 mmol/L (96-108); Creatinine Clr Calc Pharmacy 61.5; Estimated Glomerular Filt Rate > 60; Glucose Random 119 mg/dL (60-115); Lipase 10 U/L (8-78); Magnesium 1.6 mg/dL (1.6-2.6); Potassium 3.5 mmol/L (3.3-5.1); Sodium 140 mmol/L (135-145); Total Protein 6.3 g/dL (6.5-8.0)
[2024-09-26] MEDS: cefTRIAXone sodium 1 GM VIAL IVPUSH (22:10)
[2024-09-26 22:18] LABS: Troponin-I High Sensitivity < 2.7 ng/L (<3.5-17.0)
[2024-09-26 22:26] LABS: Lactic Acid 1.4 mmol/L (0.5-2.0)
[2024-09-26 22:33] LABS: Influenza A PCR NEGATIVE (Negative); Influenza B PCR NEGATIVE (Negative); Resp Syncy Virus RNA Qual PCR NEGATIVE (Negative); SARS COV2 PCR INHOUSE NEGATIVE (Negative)
[2024-09-26 22:35] LABS: Appearance Urine Turbid; Color Urine Yellow; Glucose Urine UA Negative (Negative); Leukocyte Esterase Urine Large (3+) (Negative); Nitrite Urine Positive (Negative); PH 6.5 (5.0-9.0); Specific Gravity - Urine 1.015 (1.005-1.025); UMIC TRIGGER UACC YES; Urine Blood Small (1+) (Negative); Urine Ketones Trace mg/dL (Negative); Urine Protein 30 (1+) mg/dL (Neg-Trace)
--- NOTE | 2024-09-26 22:35 | MHC.EDTECH ---
Patient LINWOOD,camera repair technician Darius at bedside and assisted RN,pt was changed into hospital attire,placed on the bus monitor,vitals taken,rectal temp of 104.2,this report writer placed a continuous rectal probe (104.0) pt tolerated well,EKG taken per order and signed by provider assisted pt on the commode,pt has a slow and steady gait,pt urinated all over the floor,pt also urinated 50MLS on commode,urine is cloudy,urine collected and sent to lab,memo care given,pure wick placed at this time,pt tolerated well,call aquino in reach
[2024-09-26 22:48] LABS: Bacteria Urine 3+ (None Seen); Hyaline Casts Urine 0-2 /LPF (0-2); UACC Culture Trigger YES; WBC Urine >50 /HPF (0-5)
--- NOTE | 2024-09-26 23:21 | MHC.EDTECH ---
Emptied 300MLS from canister,pt moved to ED bed 3, report given to utility technician Ne
--- NOTE | 2024-09-26 23:59 | PM.IMHP ---
History of Present Illness Date of Service: 09/26/24 Attending physician on admission: Papa Acuña Chief Complaint: Weakness Lori Smith is a 69 years old with past medical history significant for asthma and mood disorder was brought to the emergency department due to generalized weakness started 2 days ago. She does complain of acute urination symptoms such as urinary frequency and pain with urination. She also has been having fever, chills and nausea. Denied events of vomiting, abdominal pain or diarrhea. She does have constipation and poor appetite. She does complain of mild cough and shortness on breath. Denied chest pain. She mentioned that she has been having walking difficulties due to weakness almost resulting falls. In the ED, in the ED she was found to have persistent fever (max 104.0) and tachycardia. Blood pressure stable and oxygen saturation is normal on room air. Blood workup showed no leukocytosis or lactic acidosis. Hemoglobin and platelets are unremarkable. There are no electrolyte imbalances. Renal function LFTs are normal. Urinalysis consistent with urinary tract infection. CXR is negative. Viral testing for COVID-19, influenza and RSV is negative. ECG shows sinus tachycardia and PACs. ED tx: Acetaminophen 975 mg p.o., NS 1434 mL, ceftriaxone 1 g Review of Systems Review of Systems: All 12 systems were reviewed and normal except as noted in HPI. [facility]LY [facility] Medical History Asthma GERD (gastroesophageal reflux disease) Hypertension Schizoaffective disorder Social History Alcohol intake: current Alcohol intake frequency: holidays/special occasions only Smoked in Last 30 Days: No Use of substances other than those prescribed or required for medical reasons: No Advance Directives: No Advance Directives Information Provided: No Meds Allergies Allergy/AdvReac Type Severity Reaction Status Date / Time egg [EGG] Allergy Intermediate DIARRHEA Verified 09/26/24 21:44 lactose [LACTOSE] Allergy Intermediate DIARRHEA Verified 09/26/24 21:44 alendronate sodium Allergy Mild UPSET Verified 09/26/24 21:44 [From FOSAMAX] STOMACH bone medications AdvReac Mild STOMACH Uncoded 09/26/24 21:44 UPSET Active Medications: Current Medications Acetaminophen (Acetaminophen 325 Mg Tablet) 975 mg PO Q6H PRN PRN Reason: Pain, Mild (Pain Scale 1-3), fever or headache Ceftriaxone Sodium (Ceftriaxone Sodium 1 Gm Vial) 1 gm IVPUSH Q24H [facility] Lactated Ringer's (Lr) 1,000 mls @ 100 mls/hr IVCONT .Q10H [facility] Sodium Chloride (0.9 % Sodium Chloride Flush 3 Ml Syringe) 3 ml IVFLUSH QSHIFT [facility] Home Medications ?Medication ?Instructions ?Recorded ?Confirmed ?Last Taken ?Type albuterol sulfate 90 mcg/actuation 2 puff inhalation NEEDED 10/23/20 10/23/20 Unknown History aerosol inhaler (Ventolin HFA) benztropine 0.5 mg tablet 1 tab PO BID 10/23/20 10/23/20 Unknown History calcium 600 mg (as 1 tab PO DAILY 10/23/20 10/23/20 Unknown History carbonate)-vitamin D3 10 mcg (400 unit) tablet divalproex 125 mg capsule,delayed 500 mg PO DAILY 10/23/20 10/23/20 Unknown History release sprinkle docusate sodium 100 mg capsule 1 cap PO BID 10/23/20 10/23/20 Unknown History (Stool Softener) haloperidol 2 mg tablet 1 tab PO BID 10/23/20 10/23/20 Unknown History haloperidol 5 mg tablet 1 tab PO BEDTIME 10/23/20 10/23/20 Unknown History melatonin 3 mg tablet 1 tab PO BEDTIME 10/23/20 10/23/20 Unknown History multivitamin (One Daily 1 tab PO DAILY 10/23/20 10/23/20 Unknown History Multivitamin tablet) oxybutynin chloride 10 mg 1 tab PO DAILY 10/23/20 10/23/20 Unknown History tablet,extended release 24 hr pantoprazole 40 mg tablet,delayed 1 tab PO DAILY 10/23/20 10/23/20 Unknown History release venlafaxine 75 mg capsule,extended 1 cap PO DAILY 10/23/20 10/23/20 Unknown History release 24 hr Physical Exam Vital Signs and Narrative: Vital Signs: Last Vital Signs Temp 102.0 F H 09/26/24 23:47 Pulse 105 H 09/26/24 23:47 Resp 20 09/26/24 23:47 BP 107/57 L 09/26/24 23:47 Pulse Ox 93 09/26/24 23:47 O2 Del Method Room Air 09/26/24 23:47 BMI result Body Mass Index 31.4 Constitutional - Awake and Alert, No apparent distress. Chronically ill. HEENT - PER, EOMI. Moist oral mucosa. Oropharynx normal. Heart - Tachycardic. Normal rate. Lungs - Normal lung expansion, Normal respiratory effort, No respiratory distress, CTA bilaterally Abdomen - NT / ND; +BS; No rebound or guarding Extremities - no calf tenderness bilaterally, no swelling Musculoskeletal - Normal inspection, normal ROM Skin - Warm/Dry Neurological - Alert & oriented x3, CN III-XII intact. Generalized weakness. Normal speech. Psychological - Depressed affect Results Labs 09/26/24 21:47 09/26/24 21:47 Labs: Laboratory Results - last 24 hr 09/26/24 09/26/24 09/26/24 21:47 21:48 22:29 MCV 90.2 MCH 30.8 MCHC 34.2 RDW 14.2 Plt Count 156 L MPV 11.1 Immature Gran % (Auto) 0.8 H Neut % (Auto) 71.5 Lymph % (Auto) 9.3 L [place] % (Auto) 16.4 H Eos % (Auto) 1.8 Baso % (Auto) 0.2 Lymph # (Auto) 0.6 L [place] # (Auto) 1.1 Eos # (Auto) 0.1 Baso # (Auto) 0.0 Abs Immat Gran (auto) 0.05 H Absolute Neuts (auto) 4.8 Absolute Nucleated RBC 0.000 Nucleated RBC % (auto) 0.0 APTT 30.4 Anion Gap 14 Estim Creat Clear Calc 61.5 Estimated GFR > 60 Random Glucose 119 H Lactic Acid 1.4 Calcium 8.8 Magnesium 1.6 Total Bilirubin 0.3 AST 26 ALT 12 Alkaline Phosphatase 75 Troponin I High Sens < 2.7 Total Protein 6.3 L Albumin 3.4 L Lipase 10 Urine Color Yellow Urine Appearance Turbid Urine pH 6.5 Ur Specific [place] 1.015 Urine Protein 30 (1+) H Urine Glucose (UA) Negative Urine Ketones Trace Urine Blood Small (1+) H Urine Nitrite Positive H Ur Leukocyte Esterase Large (3+) H Urine RBC 3-5 H Urine WBC >50 H Ur Squamous Epith Cells 3-5 Urine Bacteria 3+ Hyaline Casts 0-2 Influenza Type A (PCR) NEGATIVE Influenza Type B (PCR) NEGATIVE RSV RNA Qual (PCR) NEGATIVE SARS-CoV-2 RNA (RT-PCR) NEGATIVE Imaging Radiologist's Impressions: Impressions Chest X-Ray 09/26/24 22:00 IMPRESSION: No acute cardiopulmonary disease. Electronically signed by: Federico Berry MD 09/26/2024 11:08 PM [facility] Assessment and Plan (1) Fever: Qualifiers: Encounter type: initial encounter Status: Acute (2) Urinary tract infection: Qualifiers: Hematuria presence: without hematuria Urinary tract infection type: site unspecified Qualified Code(s): N39.0 - Urinary tract infection, site not specified Status: Acute (3) SIRS (systemic inflammatory response syndrome): Status: Acute Plan Lori Smith is a 69 y/o woman admitted with: Urinary tract infection, SIRS criteria. No severe sepsis. Admit to hospitalist service. Continue empiric IV antibiotic therapy with ceftriaxone and IV fluids. Blood and urine culture obtained -will follow results. Mood disorder. Continue home medications. GERD. Continue PPI. Asthma. Not in acute exacerbation. Continue home medications. DVT prophylaxis: Lovenox Code status: Full Patient will need hospitalization for at least 2 midnights for UTI + SIRS treatment with IV antibiotics and IV fluids. Quality Stroke Does the patient have a stroke diagnosis?: No VTE Prior VTE?: No VTE Risk Level:: Medical - moderate - high VTE Device Contraindication: Treatment Not Indicated VTE Drug Contraindication: N/A - Med Ordered
[2024-09-27] VITALS (25 sets, daily range): BP systolic 81–145; BP diastolic 40–75; PULSE 76–111; RESP 13–24; TEMP 36.4–38.8; O2SAT 92–97; BMI 32.3
[2024-09-27] MEDS: OLANZapine 7.5 MG TABLET 15 MG PO (00:27)
[2024-09-27] MEDS: Ibuprofen 600 MG TABLET PO (00:27)
[2024-09-27] MEDS: Lactated Ringers 1,000 ML 100 ML IVCONT ×4 (00:27→21:22)
[2024-09-27] MEDS: traZODone HCL 25 MG HALFTAB PO ×2 (00:27→21:17)
[2024-09-27] MEDS: 0.9 % Sodium Chloride Flush 3 ML SYRINGE IVFLUSH (00:28)
[2024-09-27] MEDS: Lactated Ringers 1,000 ML 999 ML IV (01:33)
[2024-09-27] MEDS: Albumin Human 25 % 100 ML 133.33 ML IV ×2 (02:46→03:25)
[2024-09-27] MEDS: 0.9 % Sodium Chloride 500 ML IV (02:48)
--- NOTE | 2024-09-27 03:02 | PC.NURSE ---
MD Hernandez aware of pt's low BPs. pt medicated per DEC, pt placed in trendelenburg position, IV fluid bolus given, pt us asymptomatic and states she has no concerns at this time
[2024-09-27 03:42] LABS: Lactic Acid 0.7 mmol/L (0.5-2.0)
[2024-09-27 05:51] LABS: MANUAL DIFF FLAG NO
[2024-09-27 05:52] LABS: Basophils Percent Auto 0.2 % (0-2); Eosinophils Absolute Auto 0.1 X10*3/uL (0.0-0.4); Eosinophils Percent Auto 1.5 % (0-4); Hematocrit 29.8 % (37.0-47.0); Hemoglobin 10.1 g/dl (12.0-16.0); Imm Gran Abs Auto 0.03 X10*3/uL (0.00-0.03); Imm Gran Pct Auto 0.6 % (0.0-0.4); Lymphocytes Absolute Auto 0.9 X10*3/uL (1.2-4.9); Lymphocytes Percent Auto 16.4 % (20-40); Mean Corpuscular HGB Conc 33.9 g/dl (31.0-35.0); Mean Corpuscular Hemoglobin 31.5 pg (27.0-33.0); Mean Corpuscular Volume 92.8 fL (80.0-98.0); Mean Platelet Volume 10.7 fL (9.4-12.3); Monocytes Absolute Auto 0.9 X10*3/uL (0.1-1.2); Monocytes Percent Auto 17.1 % (2-11); Neutrophils Absolute Auto 3.5 x10*3/uL (2.0-8.3); Neutrophils Percent Auto 64.2 % (45-73); Platelet Count 121 X10*3/uL (160-400); Red Blood Count 3.21 X10*6/uL (4.20-5.50); Red Cell Distribution Width 14.4 % (11.0-16.0); White Blood Count 5.4 X10*3/uL (4.8-10.8)
[2024-09-27 06:13] LABS: Anion Gap 11 (12-20); Blood Urea Nitrogen 7 mg/dL (9-16); Calcium 7.9 mg/dL (8.4-10.2); Carbon Dioxide 23 mmol/L (22-29); Chloride 113 mmol/L (96-108); Creatinine Clr Calc Pharmacy 78.4; Estimated Glomerular Filt Rate > 60; Glucose Random 101 mg/dL (60-115); Magnesium 1.6 mg/dL (1.6-2.6); Potassium 3.1 mmol/L (3.3-5.1); Sodium 144 mmol/L (135-145)
--- NOTE | 2024-09-27 07:02 | PC.NURSE ---
ADMISSION NOTE: [facility], c/o weakness for the last few day resulting in falls. pt tachy and had fever of 104.2, sepsis protocol completed. +UTI. BP dropped during the night to 80s/40s, pt given IVF and albumin. BP now stable. pt A/O x3, does have times of confusion asking about a visitor that did not come. pt ambulates with a cane, uses purewick or commode at bedside. calm and cooperative with care. 20g IV RAC, LR infusing. ADMIT: UTI
[2024-09-27] MEDS: Potassium Chloride Packet 20 MEQ PACKET 40 MEQ PO (08:34)
[2024-09-27] MEDS: Enoxaparin Sodium 40 MG/0.4 ML SYRINGE SUBCUT (08:35)
--- NOTE | 2024-09-27 11:05 | HO.PM.IMPN ---
Subjective Subjective Date of Service: 09/27/24 Interval History: seen and examined this morning follow up for weakness, UTI patient awake, alert this am; reporting chills no other complaints at this time does not appear to be a good historian Review of Systems Review of Systems: Yes all other systems are reviewed and are negative Constitutional Constitutional: Denies fever(s) Cardiovascular Cardiovascular: Denies chest pain, Denies palpitations and Denies dyspnea Respiratory Respiratory: Denies cough and Denies dyspnea Endocrine Endocrine: Denies palpitations Physical Exam Vital Signs: Vital Signs: Last Vital Signs Temp 98.2 F 09/27/24 08:37 Pulse 84 09/27/24 08:37 Resp 18 09/27/24 08:37 BP 135/75 09/27/24 08:37 Pulse Ox 96 09/27/24 08:37 O2 Del Method Room Air 09/27/24 08:37 BMI result Body Mass Index 31.4 Const: Other: chronically ill appearing General: comfortable, no acute distress, alert and awake Nutritional Appearance: average body habitus Orientation/consciousness: oriented to person and oriented to place HEENT: Other: poor dentition Resp: Effort & Inspection: able to speak in complete sentences, no respiratory distress and no use of accessory muscles Auscultation: clear to auscultation bilaterally Cardio: Rate: regular rate GI: Inspection: No distended Palpation (GI): Soft to palpation and nontender Neuro: Other: b/l hands contracted General: oriented to person, oriented to place and moves all extremities Extrem: General: Yes no pedal edema Objective Data Active Medications Acetaminophen (Acetaminophen 325 Mg Tablet) 975 mg PO Q6H PRN PRN Reason: Pain, Mild (Pain Scale 1-3), fever or headache Ceftriaxone Sodium (Ceftriaxone Sodium 1 Gm Vial) 1 gm IVPUSH Q24H [facility] Enoxaparin Sodium (Enoxaparin Sodium 40 Mg/0.4 Ml Syringe) 40 mg SUBCUT Q24H [facility] Last Admin: 09/27/24 08:35 Dose: 40 mg Documented By: FRED Lactated Ringer's (Lr) 1,000 mls @ 100 mls/hr IVCONT .Q10H [facility] Last Admin: 09/27/24 10:30 Dose: 100 mls/hr Documented By: FRED Sodium Chloride (0.9 % Sodium Chloride Flush 3 Ml Syringe) 3 ml IVFLUSH QSHIFT [facility] Last Admin: 09/27/24 08:36 Dose: Not Given Documented By: FRED Non-Admin Reason: IV Running Labs 09/27/24 05:46 09/27/24 05:46 Labs: Laboratory Results - last 24 hr 09/26/24 09/26/24 09/26/24 21:47 21:48 22:29 MCV 90.2 MCH 30.8 MCHC 34.2 RDW 14.2 Plt Count 156 L MPV 11.1 Immature Gran % (Auto) 0.8 H Neut % (Auto) 71.5 Lymph % (Auto) 9.3 L [place] % (Auto) 16.4 H Eos % (Auto) 1.8 Baso % (Auto) 0.2 Lymph # (Auto) 0.6 L [place] # (Auto) 1.1 Eos # (Auto) 0.1 Baso # (Auto) 0.0 Abs Immat Gran (auto) 0.05 H Absolute Neuts (auto) 4.8 Absolute Nucleated RBC 0.000 Nucleated RBC % (auto) 0.0 APTT 30.4 Anion Gap 14 Estim Creat Clear Calc 61.5 Estimated GFR > 60 Random Glucose 119 H Lactic Acid 1.4 Calcium 8.8 Magnesium 1.6 Total Bilirubin 0.3 AST 26 ALT 12 Alkaline Phosphatase 75 Troponin I High Sens < 2.7 Total Protein 6.3 L Albumin 3.4 L Lipase 10 Urine Color Yellow Urine Appearance Turbid Urine pH 6.5 Ur Specific [place] 1.015 Urine Protein 30 (1+) H Urine Glucose (UA) Negative Urine Ketones Trace Urine Blood Small (1+) H Urine Nitrite Positive H Ur Leukocyte Esterase Large (3+) H Urine RBC 3-5 H Urine WBC >50 H Ur Squamous Epith Cells 3-5 Urine Bacteria 3+ Hyaline Casts 0-2 Influenza Type A (PCR) NEGATIVE Influenza Type B (PCR) NEGATIVE RSV RNA Qual (PCR) NEGATIVE SARS-CoV-2 RNA (RT-PCR) NEGATIVE 09/27/24 09/27/24 03:21 05:46 MCV 92.8 MCH 31.5 MCHC 33.9 RDW 14.4 Plt Count 121 L MPV 10.7 Immature Gran % (Auto) 0.6 H Neut % (Auto) 64.2 Lymph % (Auto) 16.4 L [place] % (Auto) 17.1 H Eos % (Auto) 1.5 Baso % (Auto) 0.2 Lymph # (Auto) 0.9 L [place] # (Auto) 0.9 Eos # (Auto) 0.1 Baso # (Auto) 0.0 Abs Immat Gran (auto) 0.03 Absolute Neuts (auto) 3.5 Absolute Nucleated RBC 0.000 Nucleated RBC % (auto) 0.0 APTT Anion Gap 11 L Estim Creat Clear Calc 78.4 Estimated GFR > 60 Random Glucose 101 Lactic Acid 0.7 Calcium 7.9 L D Magnesium 1.6 Total Bilirubin AST ALT Alkaline Phosphatase Troponin I High Sens Total Protein Albumin Lipase Urine Color Urine Appearance Urine pH Ur Specific [place] Urine Protein Urine Glucose (UA) Urine Ketones Urine Blood Urine Nitrite Ur Leukocyte Esterase Urine RBC Urine WBC Ur Squamous Epith Cells Urine Bacteria Hyaline Casts Influenza Type A (PCR) Influenza Type B (PCR) RSV RNA Qual (PCR) SARS-CoV-2 RNA (RT-PCR) Assessment and Plan (1) Urinary tract infection: Status: Acute Plan Lori Smith is a 69 y/o woman admitted with: sepsis due to UTI met sepsis criteria with fever, tachycardia, tachypnea lactic acid normal hypotensive overnight, BP improved with IVF continue IV ceftriaxone follow urine culture, blood cultures acute hypokalemia replace and follow BMP Mood disorder. Continue home medications when med rec completed - [facility] Normocytic anemia Above transfusion threshold Follow CBC constipation enema bowel regimen thrombocytopenia appears chronic not likely due to sepsis DVT prophylaxis: Lovenox Code status: Full Patient requires ongoing inpatient stay for management of UTI requiring IV antibiotics and IV fluids. Quality Stroke Does the patient have a stroke diagnosis?: No VTE Prior VTE?: No VTE Risk Level:: Medical - moderate - high VTE Device Contraindication: Treatment Not Indicated VTE Drug Contraindication: N/A - Med Ordered
[2024-09-27] MEDS: Magnesium Sulfate/H2O 2 GM/50 ML PIGGYBACK IV (11:35)
--- NOTE | 2024-09-27 11:44 | PHA.MEDREC ---
Addendum entered by Johanny Velez RPh 09/27/24 13:07: MED REC REVIEWED BY MICH Original Note: Pharmacy Consult ? Medication Reconciliation Pharmacy has completed the medication reconciliation. Spoke to nurse at [facility] to confirm meds.
[2024-09-27] MEDS: Acetaminophen 325 MG TABLET 975 MG PO ×2 (11:49→19:33)
--- NOTE | 2024-09-27 12:43 | PC.NURSE ---
Patient stating she has not had a BM in 9 days, has been trying to go to the bathroom but has been unable. Patient with rectal probe in place, observed to have moderate sized fecal ball at base of rectum. Provider aware and soap suds enema ordered. Soap suds enema given, patient able to pass stool that was at base of rectum, sitting on commode attempting to have BM at this time
--- NOTE | 2024-09-27 12:54 | PC.NURSE ---
After enema patient sitting on commode able to pass 5 hard ball sized BM`s. Provider aware
[2024-09-27] MEDS: Venlafaxine HCl ER 150 MG CAP.ER.24H PO (13:53)
[2024-09-27] MEDS: Divalproex Sodium Sprinkles 125 MG CAP.DR.SPR 250 MG PO (13:53)
[2024-09-27] MEDS: Divalproex Sodium Sprinkles 125 MG CAP.DR.SPR 500 MG PO (21:15)
[2024-09-27] MEDS: cefTRIAXone sodium 1 GM VIAL IVPUSH (21:16)
[2024-09-27] MEDS: Fluticasone Propionate Nasal 16 GM SPRAY 1 SPRAY NOSTRIL-B (21:16)
[2024-09-27] MEDS: Artificial Tears 15 ML DROPS 1 DROP EYE-BOTH (21:17)
[2024-09-27] MEDS: Melatonin 3 MG TABLET PO (21:17)
[2024-09-27] MEDS: Benztropine Mesylate 0.5 MG TABLET PO (21:17)
[2024-09-27] MEDS: Docusate Sodium 100 MG CAPSULE PO (21:17)
[2024-09-27] MEDS: hydrOXYzine HCL 10 MG TABLET PO (23:01)
[2024-09-28] VITALS (7 sets, daily range): BP systolic 91–133; BP diastolic 50–80; PULSE 78–96; RESP 18–20; TEMP 36.1–37.4; O2SAT 93–97
[2024-09-28] MEDS: Acetaminophen 325 MG TABLET 975 MG PO (02:12)
[2024-09-28] MEDS: Omeprazole 20 MG CAPSULE.DR PO (05:33)
[2024-09-28 07:34] LABS: Anion Gap 10 (12-20); Blood Urea Nitrogen 6 mg/dL (9-16); Calcium 8.7 mg/dL (8.4-10.2); Carbon Dioxide 25 mmol/L (22-29); Chloride 109 mmol/L (96-108); Creatinine Clr Calc Pharmacy 75.9; Estimated Glomerular Filt Rate > 60; Glucose Random 106 mg/dL (60-115); Potassium 3.4 mmol/L (3.3-5.1); Sodium 141 mmol/L (135-145)
[2024-09-28 08:12] LABS: Hematocrit 30.6 % (37.0-47.0); Hemoglobin 10.3 g/dl (12.0-16.0); Mean Corpuscular HGB Conc 33.7 g/dl (31.0-35.0); Mean Corpuscular Hemoglobin 30.7 pg (27.0-33.0); Mean Corpuscular Volume 91.3 fL (80.0-98.0); Mean Platelet Volume 10.6 fL (9.4-12.3); Platelet Count 139 X10*3/uL (160-400); Red Blood Count 3.35 X10*6/uL (4.20-5.50); Red Cell Distribution Width 14.6 % (11.0-16.0); White Blood Count 13.1 X10*3/uL (4.8-10.8)
[2024-09-28] MEDS: HaloperidoL 1 MG TABLET 4 MG PO (08:46)
[2024-09-28] MEDS: Calcium + Vitamin D 250 MG TABLET PO (08:46)
[2024-09-28] MEDS: Enoxaparin Sodium 40 MG/0.4 ML SYRINGE SUBCUT (08:46)
[2024-09-28] MEDS: Aspirin Enteric Coated 81 MG TABLET.DR PO (08:46)
[2024-09-28] MEDS: Venlafaxine HCl ER 150 MG CAP.ER.24H PO (08:46)
[2024-09-28] MEDS: Loratadine 10 MG TABLET PO (08:46)
[2024-09-28] MEDS: polyethylene glycoL 3350 17 GM POWD.PACK PO (08:47)
[2024-09-28] MEDS: hydrOXYzine HCL 10 MG TABLET PO ×3 (08:47→19:45)
[2024-09-28] MEDS: Docusate Sodium 100 MG CAPSULE PO ×2 (08:47→19:45)
[2024-09-28] MEDS: Multivitamin TABLET 1 TAB PO (08:47)
[2024-09-28] MEDS: Divalproex Sodium Sprinkles 125 MG CAP.DR.SPR 250 MG PO (08:47)
[2024-09-28] MEDS: 0.9 % Sodium Chloride Flush 3 ML SYRINGE IVFLUSH ×2 (08:48→15:01)
[2024-09-28] MEDS: Lactated Ringers 1,000 ML 100 ML IVCONT ×2 (08:48→18:39)
--- NOTE | 2024-09-28 08:55 | MHC.CM.PN ---
IMM 09/28/24, Pt lives at [facility], she has assistance with her shower there, for DME, she uses a cane. No HCP on file, form will be completed here and added to chart, naming her friend Tere Romeo. Pt. is not sure if she can get transportation home from the [facility], may need assistance with transport home. DCP: return to rest home. CM to follow and assist with DCP.
--- NOTE | 2024-09-28 09:17 | P.PNIM_ITS ---
Subjective Subjective Date of Service: 09/28/24 Interval History: seen and examined this morning follow up for weakness, UTI patient awake, alert this am; reporting chills no other complaints at this time does not appear to be a good historian Review of Systems Review of Systems: Yes all other systems are reviewed and are negative Constitutional Constitutional: Denies fever(s) Cardiovascular Cardiovascular: Denies chest pain, Denies palpitations and Denies dyspnea Respiratory Respiratory: Denies cough and Denies dyspnea Endocrine Endocrine: Denies palpitations Physical Exam 2 Vital Signs: Vital Signs: Last Vital Signs Temp 99.3 F 09/28/24 07:41 Pulse 91 09/28/24 07:41 Resp 20 09/28/24 07:41 BP 114/67 09/28/24 07:41 Pulse Ox 95 09/28/24 07:41 O2 Del Method Room Air 09/28/24 07:41 BMI result Body Mass Index 32.3 Appearing in no acute distress lung sounds are clear to auscultation heart regular rate rhythm, clear S1, S2 positive bowel sounds, abdomen is soft, nontender neuro patient is alert x3, no focal deficits Objective Data Active Medications Acetaminophen (Acetaminophen 325 Mg Tablet) 975 mg PO Q6H PRN PRN Reason: Pain, Mild (Pain Scale 1-3), fever or headache Last Admin: 09/28/24 02:12 Dose: 975 mg Documented By: DERRICK Artificial Tears (Artificial Tears 15 Ml Drops) 1 drop EYE-BOTH BID [facility] Last Admin: 09/27/24 21:17 Dose: 1 drop Documented By: DERRICK Aspirin (Aspirin Enteric Coated 81 Mg Tablet.Dr) 81 mg PO DAILY [facility] Last Admin: 09/28/24 08:46 Dose: 81 mg Documented By: ULYSSES Benztropine Mesylate (Benztropine Mesylate 0.5 Mg Tablet) 0.5 mg PO BID [facility] Last Admin: 09/27/24 21:17 Dose: 0.5 mg Documented By: DERRICK Bisacodyl (Bisacodyl 10 Mg Supp.Rect) 10 mg ME BEDTIME PRN PRN Reason: Constipation Calcium Carbonate/Cholecalciferol (Calcium + Vitamin D 250 Mg Tablet) 250 mg PO DAILY [facility] Last Admin: 09/28/24 08:46 Dose: 250 mg Documented By: ULYSSES Ceftriaxone Sodium (Ceftriaxone Sodium 1 Gm Vial) 1 gm IVPUSH Q24H [facility] Last Admin: 09/27/24 21:16 Dose: 1 gm Documented By: DERRICK Divalproex Sodium (Divalproex Sodium Sprinkles 125 Mg ) 250 mg PO DAILY [facility] Last Admin: 09/28/24 08:47 Dose: 250 mg Documented By: ULYSSES Divalproex Sodium (Divalproex Sodium Sprinkles 125 Mg ) 500 mg PO BEDTIME [facility] Last Admin: 09/27/24 21:15 Dose: 500 mg Documented By: DERRICK Docusate Sodium (Docusate Sodium 100 Mg Capsule) 100 mg PO BID [facility] Last Admin: 09/28/24 08:47 Dose: 100 mg Documented By: ULYSSES Enoxaparin Sodium (Enoxaparin Sodium 40 Mg/0.4 Ml Syringe) 40 mg SUBCUT Q24H [facility] Last Admin: 09/28/24 08:46 Dose: 40 mg Documented By: ULYSSES Fluticasone Propionate (Fluticasone Propionate Nasal 16 Gm [place]) 1 spray NOSTRIL-B BEDTIME [facility] Last Admin: 09/27/24 21:16 Dose: 1 spray Documented By: DERRICK Haloperidol (Haloperidol 1 Mg Tablet) 4 mg PO DAILY [facility] Last Admin: 09/28/24 08:46 Dose: 4 mg Documented By: ULYSSES Hydroxyzine HCl (Hydroxyzine Hcl 10 Mg Tablet) 10 mg PO QID PRN PRN Reason: Anxiety Hydroxyzine HCl (Hydroxyzine Hcl 10 Mg Tablet) 10 mg PO BID [facility] Last Admin: 09/28/24 08:47 Dose: 10 mg Documented By: ULYSSES Lactated Ringer's (Lr) 1,000 mls @ 100 mls/hr IVCONT .Q10H [facility] Last Admin: 09/28/24 08:48 Dose: 100 mls/hr Documented By: ULYSSES Lactase (Lactase Tablet) 1 tab PO QID PRN PRN Reason: Lactose Intolerance Loratadine (Loratadine 10 Mg Tablet) 10 mg PO DAILY [facility] Last Admin: 09/28/24 08:46 Dose: 10 mg Documented By: ULYSSES Melatonin (Melatonin 3 Mg Tablet) 3 mg PO BEDTIME [facility] Last Admin: 09/27/24 21:17 Dose: 3 mg Documented By: DERRICK Multivitamins/Vitamin C (Multivitamin Tablet) 1 tab PO DAILY [facility] Last Admin: 09/28/24 08:47 Dose: 1 tab Documented By: ULYSSES Olanzapine (Olanzapine 7.5 Mg Tablet) 15 mg PO BEDTIME [facility] Last Admin: 09/28/24 01:10 Dose: Not Given Documented By: DERRICK Non-Admin Reason: Med Not Available Omeprazole (Omeprazole 20 Mg Capsule.) 20 mg PO DAILY@0630 [facility] Last Admin: 09/28/24 05:33 Dose: 20 mg Documented By: DERRICK Polyethylene Glycol (Polyethylene Glycol 3350 17 Gm Powd.Pack) 17 gm PO DAILY [facility] Last Admin: 09/28/24 08:47 Dose: 17 gm Documented By: ULYSSES Sodium Chloride (0.9 % Sodium Chloride Flush 3 Ml Syringe) 3 ml IVFLUSH QSHIFT [facility] Last Admin: 09/28/24 08:48 Dose: 3 ml Documented By: ULYSSES Trazodone HCl (Trazodone Hcl 25 Mg Halftab) 25 mg PO BEDTIME [facility] Last Admin: 09/27/24 21:17 Dose: 25 mg Documented By: DERRICK Venlafaxine HCl (Venlafaxine Hcl Er 150 Mg Cap.Er.24h) 150 mg PO DAILY [facility] Last Admin: 09/28/24 08:46 Dose: 150 mg Documented By: ULYSSES Labs 09/28/24 07:55 09/28/24 06:44 Labs: Laboratory Results - last 24 hr 09/28/24 09/28/24 06:44 07:55 MCV 91.3 MCH 30.7 MCHC 33.7 RDW 14.6 Plt Count 139 L MPV 10.6 Absolute Nucleated RBC 0.000 Nucleated RBC % (auto) 0.0 Anion Gap 10 L Estim Creat Clear Calc 75.9 Estimated GFR > 60 Random Glucose 106 Calcium 8.7 D Microbiology Microbiology Results: Microbiology 09/26/24 21:48 Blood Culture - Preliminary Blood - Venous No growth after 24 hours. 09/26/24 21:50 Blood Culture - Preliminary Blood - Venous No growth after 24 hours. 09/26/24 22:29 Urine Culture - Preliminary Urine clean catch - Clean Catch Midstream Culture too young to evaluate. Assessment and Plan (1) Urinary tract infection: Status: Acute Plan Lori Smith is a 69 y/o woman admitted with: Sepsis due to UTI met sepsis criteria with fever, tachycardia, tachypnea lactic acid normal hypotensive overnight, BP improved with IVF continue IV ceftriaxone follow urine culture blood cultures beg Acute hypokalemia, Resolved replace and follow BMP Mood disorder. Continue home medications Normocytic anemia Above transfusion threshold Follow CBC constipation enema bowel regimen thrombocytopenia appears chronic not likely due to sepsis Obesity class 1. BMI 32.3 Discussed importance of weight management as this may be contributing to worsening of other comorbidities DVT prophylaxis: Lovenox Code status: Full Patient requires ongoing inpatient stay for management of UTI requiring IV antibiotics and IV fluids. Quality Stroke Does the patient have a stroke diagnosis?: No VTE Prior VTE?: No VTE Risk Level:: Medical - moderate - high VTE Device Contraindication: Treatment Not Indicated VTE Drug Contraindication: N/A - Med Ordered
[2024-09-28] MEDS: Artificial Tears 15 ML DROPS 1 DROP EYE-BOTH ×2 (13:07→19:45)
[2024-09-28] MEDS: Benztropine Mesylate 0.5 MG TABLET PO ×2 (13:07→19:53)
[2024-09-28] MEDS: Ibuprofen 800 MG TABLET PO (13:07)
[2024-09-28] MEDS: Fluticasone Propionate Nasal 16 GM SPRAY 1 SPRAY NOSTRIL-B (19:45)
[2024-09-28] MEDS: Melatonin 3 MG TABLET PO (19:45)
[2024-09-28] MEDS: cefTRIAXone sodium 1 GM VIAL IVPUSH (19:45)
[2024-09-28] MEDS: traZODone HCL 25 MG HALFTAB PO (19:45)
[2024-09-28] MEDS: Divalproex Sodium Sprinkles 125 MG CAP.DR.SPR 500 MG PO (19:45)
[2024-09-28] MEDS: OLANZapine 7.5 MG TABLET 15 MG PO (23:48)
[2024-09-29 03:44] VITALS: BP 111/61; PULSE 80; RESP 18; TEMP 36.1; O2SAT 94
[2024-09-29] MEDS: Omeprazole 20 MG CAPSULE.DR PO (05:27)
[2024-09-29 07:21] VITALS: BP 129/77; PULSE 82; RESP 18; TEMP 36.2; O2SAT 95
--- NOTE | 2024-09-29 07:49 | P.DS_ITS ---
DS: Providers Provider Date of Service: 09/29/24 Date of admission: 09/26/24 23:47 Primary care physician: Kris Ontiveros MD DS: Diagnosis Discharge Diagnosis (1) Urinary tract infection: Status: Acute DS: Summary Hospital Course Hospital Course: History and physical as per admitting provider. Lori Smith is a 69 years old with past medical history significant for asthma and mood disorder was brought to the emergency department due to generalized weakness started 2 days ago. She does complain of acute urination symptoms such as urinary frequency and pain with urination. She also has been having fever, chills and nausea. Denied events of vomiting, abdominal pain or diarrhea. She does have constipation and poor appetite. She does complain of mild cough and shortness on breath. Denied chest pain. She mentioned that she has been having walking difficulties due to weakness almost resulting falls. In the ED, in the ED she was found to have persistent fever (max 104.0) and tachycardia. Blood pressure stable and oxygen saturation is normal on room air. Blood workup showed no leukocytosis or lactic acidosis. Hemoglobin and platelets are unremarkable. There are no electrolyte imbalances. Renal function LFTs are normal. Urinalysis consistent with urinary tract infection. CXR is negative. Viral testing for COVID-19, influenza and RSV is negative. ECG shows sinus tachycardia and PACs. ED tx: Acetaminophen 975 mg p.o., NS 1434 mL, ceftriaxone 1 g 69-year-old woman treated for sepsis secondary to E coli UTI. Treated with IV ceftriaxone, blood cultures have remained negative. She was noted to have acute hypokalemia which resolved with replacement. She is alert and oriented, seen evaluated by Physical therapy who recommended short-term rehab. Plan is to transfer, continue few more days of oral antibiotics for UTI. Mood disorder. Continue home medications Normocytic anemia. Above transfusion threshold during hospitalization Constipation. Continue bowel regimen Thrombocytopenia. Appears chronic not secondary to sepsis Obesity class 1. Discussed importance of weight management as this may be contributing to worsening of other comorbidities Less than 30 day stay Time Attestation Discharge Coordination Time (in mins): 40 Quality: Safe Use of Opioids Does Pt have an Active Cancer Diagnosis on the Problem List?: No Quality: Stroke Does the patient have a stroke diagnosis?: No Physical Exam Vital Signs: Vital Signs: Last Vital Signs Temp 97.2 F 09/29/24 07:21 Pulse 82 09/29/24 07:21 Resp 18 09/29/24 07:21 BP 129/77 09/29/24 07:21 Pulse Ox 95 09/29/24 07:21 O2 Del Method Room Air 09/29/24 07:21 BMI result Body Mass Index 32.3 Appearing in no acute distress head is normocephalic atraumatic eyes pupils are PERRLA sclera is anicteric mouth throat mucous membranes are intact and moist neck is supple no lymphadenopathy, no JVD noted lung sounds are clear to auscultation heart regular rate rhythm, clear S1, S2 positive bowel sounds, abdomen is soft, nontender neuro patient is alert x3, no focal deficits DS: Data Data Completed and Pending Labs on day of discharge: Laboratory Results - last 24 hr 09/28/24 07:55 WBC 13.1 H RBC 3.35 L Hgb 10.3 L Hct 30.6 L MCV 91.3 MCH 30.7 MCHC 33.7 RDW 14.6 Plt Count 139 L MPV 10.6 Absolute Nucleated RBC 0.000 Nucleated RBC % (auto) 0.0 Preliminary micro results at discharge 09/26/24 21:48 Blood Culture - Preliminary Blood - Venous No growth after 48 hours. 09/26/24 21:50 Blood Culture - Preliminary Blood - Venous No growth after 48 hours. Discharge Plan Discharge Anticipated Discharge Date/Time: 09/29/24 07:48 Patient Disposition: [facility] [place] Discharge Diagnosis: E coli UTI sepsis Referrals: Kris Ontiveros MD [Primary Care Provider] - 1 Week Discharge Medications: New cefuroxime axetil 500 mg tablet 500 mg PO BID Qty: 10 0RF Continued benztropine 0.5 mg tablet 1 tab PO BID pantoprazole 40 mg tablet,delayed release (DR/EC) 1 tab PO DAILY@0630 haloperidol 2 mg tablet 2 tab PO DAILY divalproex 125 mg capsule, delayed rel sprinkle 250 mg PO DAILY trazodone 50 mg tablet 25 mg PO BEDTIME venlafaxine 150 mg capsule,extended release 24hr 150 mg PO DAILY tramadol 50 mg tablet 25 mg PO DAILY@1700 olanzapine 15 mg tablet 15 mg PO BEDTIME hydroxyzine HCl 10 mg tablet 10 mg PO BID multivitamin Tablet 1 tab PO DAILY acetaminophen [Tylenol] 325 mg Tablet 650 mg PO Q6H PRN (Reason: Pain) Rx Instructions: DNE 3 G / 24 HRS polyethylene glycol 3350 [Miralax] 17 gram Powder In Packet 17 g PO DAILY PRN (Reason: Constipation) polyvinyl alcohol [Artificial Tears (polyvin alc)] 1.4 % Drops 1 drp OPHTHALMIC (EYE) BID loperamide 2 mg Tablet 2 mg PO Q8H PRN (Reason: Diarrhea) melatonin 3 mg Tablet 3 mg PO BEDTIME aspirin 81 mg Tablet,Delayed Release (Dr/Ec) 81 mg PO DAILY acetaminophen 500 mg Tablet 500 mg PO DAILY Rx Instructions: DNE 3 G / 24 HRS magnesium hydroxide [Milk of Magnesia] 400 mg/5 mL Suspension 30 ml PO DAILY PRN (Reason: Constipation) ibuprofen 200 mg Tablet 400 mg PO Q8H PRN (Reason: Pain) lactase [Lactaid] 3,000 unit Tablet 3,000 unit PO QID PRN (Reason: Lactose Intolerance) Rx Instructions: administer with meals and/or snacks docusate sodium 100 mg Capsule 100 mg PO BID alum-mag hydroxide-simeth [Mintox] 200-200-20 mg/5 mL Suspension 30 ml PO Q4H PRN (Reason: GI UPSET) Rx Instructions: administer between meals and at bedtime hydroxyzine HCl 10 mg Tablet 10 mg PO QID PRN (Reason: Anxiety) fluticasone propionate [Flonase Allergy Relief] 50 mcg/actuation [place],Suspension 1 spray INTRANASAL BEDTIME Rx Instructions: administer into each nostril divalproex 125 mg capsule, delayed rel sprinkle 500 mg PO BEDTIME loratadine 10 mg Tablet 10 mg PO DAILY calcium carbonate-vitamin D3 [Calcium 600 + D(3)] 600 mg-10 mcg (400 unit) Tablet 1 tab PO DAILY Discharge Orders: Discharge Order (Routine); Ordered 09/29/24 Ordered By: Radha Negrete Diet: Advance to usual diet Activity on Discharge: As tolerated Stand Alone Forms: Patient Portal Discharge page Print Language: Turkish Care Plan Goals: Complete antibiotic course for 5 more days Health Concerns: Sepsis E coli UTI Plan of Treatment: Follow-up with primary care provider as needed Take all medications as prescribed Assessment: See discharge summary
[2024-09-29] MEDS: Aspirin Enteric Coated 81 MG TABLET.DR PO (09:40)
[2024-09-29 09:41] VITALS: BP 129/77; PULSE 82; O2SAT 95
[2024-09-29] MEDS: Benztropine Mesylate 0.5 MG TABLET PO (09:41)
[2024-09-29] MEDS: hydrOXYzine HCL 10 MG TABLET PO (09:41)
[2024-09-29] MEDS: HaloperidoL 1 MG TABLET 4 MG PO (09:41)
[2024-09-29] MEDS: Calcium + Vitamin D 250 MG TABLET PO (09:41)
[2024-09-29] MEDS: Loratadine 10 MG TABLET PO (09:41)
[2024-09-29] MEDS: Venlafaxine HCl ER 150 MG CAP.ER.24H PO (09:42)
[2024-09-29] MEDS: Divalproex Sodium Sprinkles 125 MG CAP.DR.SPR 250 MG PO (09:42)
[2024-09-29] MEDS: Docusate Sodium 100 MG CAPSULE PO (09:42)
[2024-09-29] MEDS: Multivitamin TABLET 1 TAB PO (09:42)
[2024-09-29] MEDS: Enoxaparin Sodium 40 MG/0.4 ML SYRINGE SUBCUT (09:43)
[2024-09-29] MEDS: Artificial Tears 15 ML DROPS 1 DROP EYE-BOTH (09:47)
[2024-09-29] MEDS: 0.9 % Sodium Chloride Flush 3 ML SYRINGE IVFLUSH (09:49)
--- NOTE | 2024-09-29 10:45 | HO.PM.IMPN ---
Subjective Subjective Date of Service: 09/29/24 Interval History: seen and examined this morning follow up for weakness, UTI patient awake, alert this am; reporting chills no other complaints at this time Review of Systems Review of Systems: Yes all other systems are reviewed and are negative Constitutional Constitutional: Denies fever(s) Cardiovascular Cardiovascular: Denies chest pain, Denies palpitations and Denies dyspnea Respiratory Respiratory: Denies cough and Denies dyspnea Endocrine Endocrine: Denies palpitations Physical Exam Vital Signs: Vital Signs: Last Vital Signs Temp 97.2 F 09/29/24 07:21 Pulse 82 09/29/24 09:41 Resp 18 09/29/24 07:21 BP 129/77 09/29/24 09:41 Pulse Ox 95 09/29/24 09:41 O2 Del Method Room Air 09/29/24 07:21 BMI result Body Mass Index 32.3 Appearing in no acute distress lung sounds are clear to auscultation heart regular rate rhythm, clear S1, S2 positive bowel sounds, abdomen is soft, nontender neuro patient is alert x3, no focal deficits Objective Data Active Medications Acetaminophen (Acetaminophen 325 Mg Tablet) 975 mg PO Q6H PRN PRN Reason: Pain, Mild (Pain Scale 1-3), fever or headache Last Admin: 09/28/24 02:12 Dose: 975 mg Documented By: DERRICK Albuterol Sulfate (Albuterol Sulfate (0.083%) 2.5 Mg/3 Ml Vial.Neb) 2.5 mg INHALE Q6H PRN PRN Reason: wheezing Artificial Tears (Artificial Tears 15 Ml Drops) 1 drop EYE-BOTH BID [facility] Last Admin: 09/29/24 09:47 Dose: 1 drop Documented By: STEPHANIE Aspirin (Aspirin Enteric Coated 81 Mg Tablet.) 81 mg PO DAILY [facility] Last Admin: 09/29/24 09:40 Dose: 81 mg Documented By: STEPHANIE Benztropine Mesylate (Benztropine Mesylate 0.5 Mg Tablet) 0.5 mg PO BID [facility] Last Admin: 09/29/24 09:41 Dose: 0.5 mg Documented By: STEPHANIE Bisacodyl (Bisacodyl 10 Mg Supp.Rect) 10 mg [place] BEDTIME PRN PRN Reason: Constipation Calcium Carbonate/Cholecalciferol (Calcium + Vitamin D 250 Mg Tablet) 250 mg PO DAILY [facility] Last Admin: 09/29/24 09:41 Dose: 250 mg Documented By: STEPHANIE Ceftriaxone Sodium (Ceftriaxone Sodium 1 Gm Vial) 1 gm IVPUSH Q24H [facility] Last Admin: 09/28/24 19:45 Dose: 1 gm Documented By: DERRICK Divalproex Sodium (Divalproex Sodium Sprinkles 125 Mg ) 250 mg PO DAILY [facility] Last Admin: 09/29/24 09:42 Dose: 250 mg Documented By: STEPHANIE Divalproex Sodium (Divalproex Sodium Sprinkles 125 Mg ) 500 mg PO BEDTIME [facility] Last Admin: 09/28/24 19:45 Dose: 500 mg Documented By: DERRICK Docusate Sodium (Docusate Sodium 100 Mg Capsule) 100 mg PO BID [facility] Last Admin: 09/29/24 09:42 Dose: 100 mg Documented By: STEPHANIE Enoxaparin Sodium (Enoxaparin Sodium 40 Mg/0.4 Ml Syringe) 40 mg SUBCUT Q24H [facility] Last Admin: 09/29/24 09:43 Dose: 40 mg Documented By: STEPHANIE Fluticasone Propionate (Fluticasone Propionate Nasal 16 Gm [place]) 1 spray NOSTRIL-B BEDTIME [facility] Last Admin: 09/28/24 19:45 Dose: 1 spray Documented By: DERRICK Haloperidol (Haloperidol 1 Mg Tablet) 4 mg PO DAILY [facility] Last Admin: 09/29/24 09:41 Dose: 4 mg Documented By: STEPHANIE Hydroxyzine HCl (Hydroxyzine Hcl 10 Mg Tablet) 10 mg PO QID PRN PRN Reason: Anxiety Last Admin: 09/28/24 15:01 Dose: 10 mg Documented By: ULYSSES Hydroxyzine HCl (Hydroxyzine Hcl 10 Mg Tablet) 10 mg PO BID [facility] Last Admin: 09/29/24 09:41 Dose: 10 mg Documented By: STEPHANIE Ibuprofen (Ibuprofen 800 Mg Tablet) 800 mg PO Q8H PRN PRN Reason: Migraine Headache Last Admin: 09/28/24 13:07 Dose: 800 mg Documented By: ULYSSES Lactase (Lactase Tablet) 1 tab PO QID PRN PRN Reason: Lactose Intolerance Loratadine (Loratadine 10 Mg Tablet) 10 mg PO DAILY [facility] Last Admin: 09/29/24 09:41 Dose: 10 mg Documented By: STEPHANIE Melatonin (Melatonin 3 Mg Tablet) 3 mg PO BEDTIME [facility] Last Admin: 09/28/24 19:45 Dose: 3 mg Documented By: DERRICK Multivitamins/Vitamin C (Multivitamin Tablet) 1 tab PO DAILY [facility] Last Admin: 09/29/24 09:42 Dose: 1 tab Documented By: STEPHANIE Olanzapine (Olanzapine 7.5 Mg Tablet) 15 mg PO BEDTIME [facility] Last Admin: 09/28/24 23:48 Dose: 15 mg Documented By: CASSIUS Comments: late d/t med unavailability Omeprazole (Omeprazole 20 Mg Capsule.) 20 mg PO DAILY@0630 [facility] Last Admin: 09/29/24 05:27 Dose: 20 mg Documented By: CASSIUS Polyethylene Glycol (Polyethylene Glycol 3350 17 Gm Powd.Pack) 17 gm PO DAILY [facility] Last Admin: 09/29/24 09:43 Dose: Not Given Documented By: STEPHANIE Non-Admin Reason: Patient Refused Sodium Chloride (0.9 % Sodium Chloride Flush 3 Ml Syringe) 3 ml IVFLUSH QSHIFT [facility] Last Admin: 09/29/24 09:49 Dose: 3 ml Documented By: STEPHANIE Trazodone HCl (Trazodone Hcl 25 Mg Halftab) 25 mg PO BEDTIME [facility] Last Admin: 09/28/24 19:45 Dose: 25 mg Documented By: DERRICK Venlafaxine HCl (Venlafaxine Hcl Er 150 Mg Cap.Er.24h) 150 mg PO DAILY [facility] Last Admin: 09/29/24 09:42 Dose: 150 mg Documented By: STEPHANIE Labs 09/28/24 07:55 09/28/24 06:44 Microbiology Microbiology Results: Microbiology 09/26/24 22:29 Urine Culture - Final Urine clean catch - Clean Catch Midstream Escherichia coli 09/26/24 21:48 Blood Culture - Preliminary Blood - Venous No growth after 48 hours. 09/26/24 21:50 Blood Culture - Preliminary Blood - Venous No growth after 48 hours. Assessment and Plan (1) Urinary tract infection: Status: Acute Plan 69 y/o woman admitted with Sepsis secondary to UTI Sepsis due to Ecoli UTI met sepsis criteria with fever, tachycardia, tachypnea continue IV ceftriaxone blood cultures neg Acute hypokalemia, Resolved replace and follow BMP Mood disorder. Continue home medications Normocytic anemia Above transfusion threshold Follow CBC Constipation enema bowel regimen Thrombocytopenia appears chronic not likely due to sepsis Obesity class 1. BMI 32.3 Discussed importance of weight management as this may be contributing to worsening of other comorbidities DVT prophylaxis: Lovenox Attending Dr. Broussard Code status: Full PT rec STR when bed available Patient requires ongoing inpatient stay for management of UTI requiring IV antibiotics and IV fluids. Quality Stroke Does the patient have a stroke diagnosis?: No VTE Prior VTE?: No VTE Risk Level:: Medical - moderate - high VTE Device Contraindication: Treatment Not Indicated VTE Drug Contraindication: N/A - Med Ordered
[2024-09-29 11:07] VITALS: BP 119/74; PULSE 99; RESP 18; TEMP 36.7; O2SAT 93
[2024-09-29 16:00] VITALS: BP 107/72; PULSE 87; RESP 18; TEMP 36.5; O2SAT 95
== END 2024-09-29 17:28 | disposition skilled nursing facility (03) | DRG 872 ==
LOC: HO.ED 23:12 → HO.EDOVER 23:54 → HO.IMC 09-27 01:45 → HO.EDOVER 09-27 08:10 → HO.IMC 09-27 19:51
PROVIDERS: Physician Assistant Medical; Admitting Provider Internal Medicine; Emergency Provider Emergency Medicine Emergency Medical Services; PCP Internal Medicine; Visit Provider Nurse Practitioner Acute Care
DX: A41.51 Sepsis due to Escherichia coli [E. coli] (principal); N39.0 Urinary tract infection, site not specified; J45.909 Unspecified asthma, uncomplicated; I10 Essential (primary) hypertension; F25.9 Schizoaffective disorder, unspecified; E66.811 Obesity, class 1; Z71.3 Dietary counseling and surveillance; K21.9 Gastro-esophageal reflux disease without esophagitis; E87.6 Hypokalemia; D64.9 Anemia, unspecified; D69.6 Thrombocytopenia, unspecified; K59.00 Constipation, unspecified; Z20.822 Contact with and (suspected) exposure to COVID-19; Z68.32 Body mass index [BMI] 32.0-32.9, adult; Z79.51 Long term (current) use of inhaled steroids; Z79.82 Long term (current) use of aspirin; Z79.899 Other long term (current) drug therapy
CPT/HCPCS: 0241U; 36415; 71045; 80048; 80053; 81001; 83605; 83690; 83735; 84484; 85025; 85027; 85730; 87040; 87086; 87088; 87186; 93005; 97162; 99285; J0696; J1650; J3475; J7120; P9047

== ENCOUNTER → 2024-09-26 21:39 | Outpatient (BNV) | payer MEDICARE, MEDICAID, SELFPAY | PROVIDERS: Admitting Provider Internal Medicine; Emergency Provider Emergency Medicine Emergency Medical Services; PCP Internal Medicine; Visit Provider Internal Medicine | DX: R00.0 Tachycardia, unspecified (principal); R94.31 Abnormal electrocardiogram [ECG] [EKG]; R53.1 Weakness | CPT/HCPCS: 93010 ==

== ENCOUNTER → 2024-09-26 23:47 | Outpatient (BNV) | payer MEDICARE, MEDICAID, SELFPAY | PROVIDERS: Admitting Provider Internal Medicine; Emergency Provider Emergency Medicine Emergency Medical Services; PCP Internal Medicine; Visit Provider Internal Medicine | DX: N39.0 Urinary tract infection, site not specified (principal) | CPT/HCPCS: 99232; 99239; 99499 ==